=== PATIENT | male | born 1940 | race Caucasian/White ===

== ENCOUNTER 2019-08-29 13:07 | Emergency (ER) | payer OTHER ==
[2019-08-29 14:52] LABS: Absolute Lymphocytes (CBC) 1.5 K/uL (0.7-4.9); Basophils % 0.6 % (0-1.3); Lymphocytes % 19.5 % (15.3-44.8); MPV 8.3 fL (7.6-11.3); RBC Red Blood Cell Count 4.52 M/uL (4.33-5.43)
[2019-08-29 15:18] LABS: Albumin 3.2 g/dL (3.4-5.0); Bilirubin Total 0.9 mg/dL (0.2-1.0); Potassium 3.9 mmol/L (3.5-5.1); Protein, Total 7.4 g/dL (6.4-8.2); Thyroid Stimulating Hormone 1.85 uIU/mL (0.360-3.740)
--- NOTE | 2019-08-29 15:38 | RAD REPORT ---
EXAM DESCRIPTION: Ryley Gilbert (2 Views)08/29/2019 3:23 pm CLINICAL HISTORY: Cough COMPARISON: 2012 FINDINGS: The lungs appear clear of acute infiltrate. The heart is normal size Old rib fractures are present IMPRESSION: No acute abnormalities displayed
--- NOTE | 2019-08-29 16:12 | ER ---
Nurse's Notes [facility] Name: Jony Currie Age: 78 yrs Sex: Male : 1940 Arrival Date: 08/29/2019 Time: 13:11 Bed 4 Private MD: Ce Dumas H Diagnosis: Acute sinusitis Presentation: 08/29 13:30 Presenting complaint: Patient states: chest congestion x several weeks, chills, fever ss intermittent. No appetite and energy. Transition of care: patient was not received from another setting of care. Onset of symptoms is unknown. 13:30 Method Of Arrival: Ambulatory ss 13:30 Acuity: SELENE 4 ss 15:55 Risk Assessment: Do you want to hurt yourself or someone else? Patient reports no tw2 desire to harm self or others. Initial Sepsis Screen: Does the patient meet any 2 criteria? No. Patient's initial sepsis screen is negative. Does the patient have a suspected source of infection? No. Patient's initial sepsis screen is negative. Care prior to arrival: None. Triage Assessment: 13:35 Neuro: Level of Consciousness is awake, alert, obeys commands, Oriented to person, ss place, time, situation. Cardiovascular: Capillary refill < 3 seconds is brisk in bilateral fingers. Respiratory: Airway is patent Respiratory effort is even, unlabored, Respiratory pattern is regular, symmetrical. Respiratory: Reports cough that is. Derm: Skin is pink, warm \T\ dry. 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 - Social history:: Smoking status: Patient uses tobacco products, smokes two packs cigarettes per day. - Ebola Screening: : Patient negative for fever greater than or equal to 101.5 degrees Fahrenheit, and additional compatible Ebola Virus Disease symptoms. Screenin:55 Abuse screen: Denies threats or abuse. Nutritional screening: No deficits noted. tw2 Tuberculosis screening: No symptoms or risk factors identified. Fall Risk None identified. Assessment: 14:03 General: Appears in no apparent distress. Behavior is calm, cooperative, appropriate tw2 for age. Pain: Denies pain. Neuro: Level of Consciousness is awake, alert, obeys commands, Oriented to person, place, time, situation. Cardiovascular: Heart tones S1 S2 Patient's skin is warm and dry. Respiratory: Reports cough that is non-productive, persistent Airway is patent Respiratory effort is even, unlabored, Respiratory pattern is regular, symmetrical, Breath sounds are clear bilaterally. GI: No signs and/or symptoms were reported involving the gastrointestinal system. Abdomen is flat, Bowel sounds present X 4 quads. : No signs and/or symptoms were reported regarding the genitourinary system. EENT: Reports nasal congestion nasal discharge. Derm: No signs and/or symptoms reported regarding the dermatologic system. Musculoskeletal: Range of motion: intact in all extremities. 15:27 Reassessment: Patient appears in no apparent distress at this time. No changes from tw2 previously documented assessment. Patient and/or family updated on plan of care and expected duration. Pain level reassessed. Patient is alert, oriented x 3, equal unlabored respirations, skin warm/dry/pink. 15:54 Reassessment: Patient appears in no apparent distress at this time. No changes from tw2 previously documented assessment. Patient and/or family updated on plan of care and expected duration. Pain level reassessed. Patient is alert, oriented x 3, equal unlabored respirations, skin warm/dry/pink. 16:32 Reassessment: Patient appears in no apparent distress at this time. No changes from tw2 previously documented assessment. Patient and/or family updated on plan of care and expected duration. Pain level reassessed. Patient is alert, oriented x 3, equal unlabored respirations, skin warm/dry/pink. Vital Signs: 13:33 BP 108 / 91; Pulse 84; Resp 19; Temp 99.3(TE); Pulse Ox 94% on R/A; Weight 90.72 kg ss (R); Height 6 ft. 0 in. (182.88 cm) (R); Pain 2/10; 15:27 BP 91 / 54; Pulse 64; Resp 17; Pulse Ox 95% on R/A; tw2 15:53 BP 144 / 83; Pulse 65; Resp 17; Pulse Ox 97% on R/A; tw2 16:32 BP 138 / 86; Pulse 66; Resp 17; Pulse Ox 97% on R/A; tw2 13:33 Body Mass Index 27.12 (90.72 kg, 182.88 cm) ED Course: 13:11 Patient arrived in ED. as 13:12 Ce Dumas DO is Private Physician. as 13:32 Triage completed. ss 13:33 Arm band placed on right wrist. 14:03 Bed in low position. Side rails up X2. monitor worker on. Pulse ox on. NIBP on. Warm tw2 blanket given. 14:11 Ama Billy, RN is Primary Nurse. tw2 14:12 Israel Solis NP is PHCP. pm1 14:12 Mich Ernst MD is Attending Physician. pm1 15:22 Chest Pa And Lat (2 Views) XRAY In Process Unspecified. EDMS 16:32 No provider procedures requiring assistance completed. IV discontinued, intact, tw2 bleeding controlled, No redness/swelling at site. Pressure dressing applied. Administered Medications: No medications were administered Outcome: 16:10 Discharge ordered by MD. pm1 16:32 Discharged to home ambulatory, with family. tw2 16:32 Condition: stable 16:32 Discharge instructions given to patient, family, Instructed on discharge instructions, follow up and referral plans. medication usage, Demonstrated understanding of instructions, follow-up care, medications, Prescriptions given X 2. 16:33 Patient left the ED. tw2 Signatures: Dispatcher [employer] Sofie Benjamin Shelby, RN RN Israel Solis NP TRACER BULLET SECTION SUPERVISOR pm1 Ama Billy RN RN tw2
--- NOTE | 2019-08-29 16:12 | EDPHYS ---
Physician Documentation [facility] Name: Jony Currie Age: 78 yrs Sex: Male : 1940 Arrival Date: 08/29/2019 Time: 13:11 Bed 4 Private MD: Ce Dumas H ED Physician Mich Ernst HPI: 08/29 15:06 This 78 yrs old Male presents to ER via Ambulatory with complaints of Chest pm1 Congestion. 15:06 The patient or guardian reports cough, sinus congestion and pain. Onset: The pm1 symptoms/episode began/occurred 3 week(s) ago. Severity of symptoms: in the emergency department the symptoms cough and improved but sinus pain and congestion worse. Modifying factors: The symptoms are alleviated by nothing, the symptoms are aggravated by nothing. Associated signs and symptoms: Pertinent positives: earache, decreased energy. On and off fever and chills, Pertinent negatives: chest pain, diarrhea, sore throat, vomiting. The patient has not recently seen a physician. 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 - Social history:: Smoking status: Patient uses tobacco products, smokes two packs cigarettes per day. - Ebola Screening: : Patient negative for fever greater than or equal to 101.5 degrees Fahrenheit, and additional compatible Ebola Virus Disease symptoms. ROS: 15:06 Constitutional: Negative for fever, chills, and weight loss, Eyes: Negative for injury, pm1 pain, redness, and discharge. 15:06 Neck: Negative for injury, pain, and swelling, Cardiovascular: Negative for chest pain, palpitations, and edema. 15:06 Abdomen/GI: Negative for abdominal pain, nausea, vomiting, diarrhea, and constipation, Back: Negative for injury and pain, : Negative for injury, bleeding, discharge, and swelling, MS/Extremity: Negative for injury and deformity, Skin: Negative for injury, rash, and discoloration, Neuro: Negative for headache, weakness, numbness, tingling, and seizure. 15:06 ENT: Positive for ear pain, sinus congestion, sinus pain, Negative for difficulty swallowing, difficulty handling secretions, hoarseness. 15:06 Respiratory: Positive for cough, Negative for shortness of breath, sputum production, wheezing. Exam: 15:06 Constitutional: This is a well developed, well nourished patient who is awake, alert, pm1 and in no acute distress. 15:06 Eyes: Pupils equal round and reactive to light, extra-ocular motions intact. Lids and lashes normal. Conjunctiva and sclera are non-icteric and not injected. Cornea within normal limits. Periorbital areas with no swelling, redness, or edema. ENT: Nares patent. No nasal discharge, no septal abnormalities noted. Tympanic membranes are normal and external auditory canals are clear. Oropharynx with no redness, swelling, or masses, exudates, or evidence of obstruction, uvula midline. Mucous membranes moist. Neck: Trachea midline, no thyromegaly or masses palpated, and no cervical lymphadenopathy. Supple, full range of motion without nuchal rigidity, or vertebral point tenderness. No Meningismus. Chest/axilla: Normal chest wall appearance and motion. Nontender with no deformity. No lesions are appreciated. Cardiovascular: Regular rate and rhythm with a normal S1 and S2. No gallops, murmurs, or rubs. Normal PMI, no JVD. No pulse deficits. Respiratory: Lungs have equal breath sounds bilaterally, clear to auscultation and percussion. No rales, rhonchi or wheezes noted. No increased work of breathing, no retractions or nasal flaring. Abdomen/GI: Soft, non-tender, with normal bowel sounds. No distension or tympany. No guarding or rebound. No evidence of tenderness throughout. Back: No spinal tenderness. No costovertebral tenderness. Full range of motion. Skin: Warm, dry with normal turgor. Normal color with no rashes, no lesions, and no evidence of cellulitis. MS/ Extremity: Pulses equal, no cyanosis. Neurovascular intact. Full, normal range of motion. 15:06 Head/face: Sinus tenderness, is located over the right frontal sinus, left frontal sinus, right maxillary sinus and left maxillary sinus. 15:06 Neuro: Orientation: is normal, Motor: is normal, moves all fours. Vital Signs: 13:33 BP 108 / 91; Pulse 84; Resp 19; Temp 99.3(TE); Pulse Ox 94% on R/A; Weight 90.72 kg ss (R); Height 6 ft. 0 in. (182.88 cm) (R); Pain 2/10; 15:27 BP 91 / 54; Pulse 64; Resp 17; Pulse Ox 95% on R/A; tw2 15:53 BP 144 / 83; Pulse 65; Resp 17; Pulse Ox 97% on R/A; tw2 16:32 BP 138 / 86; Pulse 66; Resp 17; Pulse Ox 97% on R/A; tw2 13:33 Body Mass Index 27.12 (90.72 kg, 182.88 cm) ss MDM: 14:12 Patient medically screened. pm1 16:10 Data reviewed: vital signs. Data interpreted: Pulse oximetry: on room air is 97 %. pm1 Interpretation: normal. Counseling: I had a detailed discussion with the patient and/or guardian regarding: the historical points, exam findings, and any diagnostic results supporting the discharge/admit diagnosis, lab results, radiology results, the need for outpatient follow up, to return to the emergency department if symptoms worsen or persist or if there are any questions or concerns that arise at home. 08/29 14:20 Order name: CBC with Diff; Complete Time: 15:01 pm1 08/29 14:20 Order name: CMP; Complete Time: 15:26 pm1 08/29 14:20 Order name: TSH; Complete Time: 15:26 pm1 08/29 14:20 Order name: Flu; Complete Time: 15:26 pm1 08/29 14:20 Order name: Strep; Complete Time: 15:26 pm1 08/29 15:06 Order name: Throat Culture EDMS 08/29 14:20 Order name: Chest Pa And Lat (2 Views) XRAY; Complete Time: 16:09 pm1 08/29 14:21 Order name: IV Start; Complete Time: 14:56 tw2 Administered Medications: No medications were administered Disposition: 08/29/19 16:10 Discharged to Home. Impression: Acute sinusitis. - Condition is Stable. - Discharge Instructions: Sinusitis, Adult. - Prescriptions for Amoxicillin 500 mg Oral Capsule - take 1 capsule by ORAL route every 8 hours for 10 days; 30 tablet. - Medication Reconciliation Form, Thank You Letter, Antibiotic Education, Prescription Opioid Use form. - Follow up: Emergency Department; When: As needed; Reason: Worsening of condition. Follow up: Private Physician; When: 2 - 3 days; Reason: Recheck today's complaints, Continuance of care, Re-evaluation by your physician. - Problem is new. - Symptoms have improved. Addendum: 09/06/2019 11:06 Co-signature as Attending Physician, Mich Ernst MD I agree with the assessment and c mckeon plan of care. Signatures: Dispatcher [employer] EDMich Ingram MD MD cha Smirch, Shelby, RN RN ss Israel Solis NP LAW WRITER pm1 Ama Billy RN RN tw2 Corrections: (The following items were deleted from the chart) 08/29 16:33 16:10 08/29/2019 16:10 Discharged to Home. Impression: Acute sinusitis. Condition is tw2 Stable. Forms are Medication Reconciliation Form, Thank You Letter, Antibiotic Education, Prescription Opioid Use. Follow up: Emergency Department; When: As needed; Reason: Worsening of condition. Follow up: Private Physician; When: 2 - 3 days; Reason: Recheck today's complaints, Continuance of care, Re-evaluation by your physician. Problem is new. Symptoms have improved. pm1
[2019-08-29 17:39] VITALS: TEMP 99.3
[2019-08-29 17:41] VITALS: O2SAT 97
[2019-08-29 17:42] VITALS: BP 138/86
== END 2019-08-29 16:33 | disposition home or self-care (01) ==
LOC: ER 13:07
DX: J01.90 Acute sinusitis, unspecified (principal); F17.210 Nicotine dependence, cigarettes, uncomplicated; Z79.01 Long term (current) use of anticoagulants; Z86.718 Personal history of other venous thrombosis and embolism
CPT/HCPCS: 36415; 71046; 80053; 84443; 85025; 87070; 87081; 87804; 99284

== ENCOUNTER 2021-03-27 11:04 | Emergency (ER) | payer OTHER ==
--- NOTE | 2021-03-27 12:56 | RAD REPORT ---
EXAM DESCRIPTION: RAD - Ribs Right - 03/27/2021 12:42 pm CLINICAL HISTORY: fall, SOB COMPARISON: Chest Pa And Lat (2 Views) dated 08/29/2019 FINDINGS: There is mild cortical offset is seen involving the right lateral fourth and fifth ribs stephens spicious for rib fractures. No underlying pneumothorax is seen.
[2021-03-27] MEDS ORDERED: IPRATROPIUM BROM 0.5MG/2.5ML ONE (13:40)
[2021-03-27] MEDS ORDERED: ALBUTEROL 2.5 MG/3 ML NEB SOL ONE (13:40)
[2021-03-27] MEDS ORDERED: HYDROCODONE/APAP 5/325 MG TAB ONE (13:40)
[2021-03-27] MEDS ORDERED: predniSONE 20 MG TAB ONE (13:40)
--- NOTE | 2021-03-27 18:08 | EDPHYS ---
Physician Documentation [facility] Name: Jony Currie Age: 80 yrs Sex: Male : 1940 Arrival Date: 03/27/2021 Time: 11:08 Bed 2 Private MD: Ce Dumas H ED Physician Rishabh Serra HPI: 03/27 13:05 This 80 yrs old Male presents to ER via Wheelchair with complaints of Fall cp Injury. 13:05 Details of fall: The patient fell from an upright position, while standing. cp 13:05 Onset: The symptoms/episode began/occurred 2 day(s) ago. cp 13:05 Associated injuries: The patient sustained injury to the chest, specifically the right cp lateral anterior chest and right lateral posterior chest, pain with breathing, pain with movement, tenderness. Severity of symptoms: in the emergency department the symptoms are unchanged, despite home interventions. Patient reports fall after misstep 2 days ago in which he struck left knee and right rib area. Denies hitting head, denies LOC, denies syncope. Patient denies taking blood thinners. Historical: - Allergies: 11:25 No Known Allergies; iw - Home Meds: 11:25 ibandronate 150 mg oral tab 1 tab once moly [Active]; tamsulosin 0.4 mg oral cap 1 cap iw once daily [Active]; warfarin 7.5 mg Oral tab 1 tab once daily [Active]; - PMHx: 11:25 DVT; PE; iw - Immunization history:: Client reports receiving the 2nd dose of the Covid vaccine. - Social history:: Smoking status: Patient reports the use of cigarette tobacco products, smokes two packs cigarettes per day. - Immunization history: Last tetanus immunization: unknown. ROS: 13:10 Cardiovascular: Positive for chest pain, of the right lateral anterior chest and right cp lateral posterior chest. 13:10 Constitutional: Negative for body aches, chills, fever, poor PO intake. cp 13:10 Respiratory: Positive for shortness of breath, wheezing, Negative for cough. 13:10 Abdomen/GI: Negative for abdominal pain, constipation. cp 13:10 Eyes: Negative for injury, pain, redness, and discharge. cp 13:10 ENT: Negative for ear pain, sore throat, difficulty swallowing, difficulty handling secretions. 13:10 Back: Negative for pain at rest, pain with movement. 13:10 MS/extremity: Positive for abrasion, pain, of the left knee, Negative for decreased range of motion. 13:10 Neuro: Negative for altered mental status, headache, loss of consciousness, syncope, weakness. 13:10 All other systems are negative. Exam: 13:15 Constitutional: The patient appears in no acute distress, alert, awake, cp non-diaphoretic, non-toxic, well developed, well nourished, uncomfortable. 13:15 Head/Face: Normocephalic, atraumatic. cp 13:15 Eyes: Periorbital structures: appear normal, Pupils: equal, round, and reactive to cp light and accomodation, Extraocular movements: intact throughout, Conjunctiva: normal, no exudate, no injection, Sclera: no appreciated abnormality, Lids and lashes: appear normal, bilaterally. 13:15 ENT: External ear(s): are unremarkable, Nose: is normal, Mouth: Lips: moist, Oral mucosa: moist, Posterior pharynx: Airway: no evidence of obstruction, patent. 13:15 Neck: C-spine: vertebral tenderness, is not appreciated, crepitus, is not appreciated, ROM/movement: is normal, is supple, without pain, no range of motions limitations. 13:15 Chest/axilla: Inspection: normal, Palpation: crepitus, is not appreciated, tenderness, that is moderate, of the right lateral anterior chest and right lateral posterior chest. 13:15 Cardiovascular: Rate: normal, Rhythm: regular, Edema: is not appreciated, JVD: is not appreciated. 13:15 Respiratory: the patient does not display signs of respiratory distress, Respirations: labored breathing, that is mild, Breath sounds: decreased breath sounds, that are moderate, throughout, stridor, is not appreciated, wheezing: that is mild, is heard diffusely. 13:15 Abdomen/GI: Inspection: abdomen appears normal, Bowel sounds: active, all quadrants, Palpation: abdomen is soft and non-tender, in all quadrants, rebound tenderness, is not appreciated, involuntary guarding, is not appreciated. 13:15 Back: pain, is absent, ROM is normal, vertebral tenderness, is not appreciated. 13:15 Musculoskeletal/extremity: Extremities: grossly normal except: noted in the left knee: abrasion, tenderness, There is no evidence of decreased ROM, deformity, ROM: full passive range of motion, in the left knee. 13:15 Neuro: Orientation: to person, place \T\ time. Mentation: is normal, Motor: moves all cp fours, strength is normal, Sensation: no obvious gross deficits. Vital Signs: 11:24 BP 144 / 82; Pulse 71; Resp 16; Temp 98.2; Pulse Ox 95% on R/A; Weight 90.72 kg; Height iw 6 ft. (182.88 cm); 11:24 Body Mass Index 27.12 (90.72 kg, 182.88 cm) iw [place] Coma Score: 13:29 Eye Response: spontaneous(4). Verbal Response: oriented(5). Motor Response: obeys ph commands(6). Total: 15. Trauma Score (Adult): 13:29 Eye Response: spontaneous(1); Verbal Response: oriented(1); Motor Response: obeys ph commands(2); Systolic BP: > 89 mm Hg(4); Respiratory Rate: 10 to 29 per min(4); Audra Score: 15; Trauma Score: 12 MDM: 12:59 Patient medically screened. cp 13:00 Differential diagnosis: closed head injury, contusion, fracture, laceration, multiple cp trauma. 14:16 Data reviewed: vital signs, nurses notes, radiologic studies, plain films, Vital signs cp stable. Patient resting comfortably in exam room. Patient appears nontoxic and no signs of respiratory distress at this time. Patient reports pain improved with meds. Patient reports breathing improved with neb treatment. Will discharge to home. Recommend follow-up with primary care physician for further pain control. Will send home with an incentive spirometry.. 03/27 11:31 Order name: Ribs Right XRAY; Complete Time: 13:01 iw 03/27 13:01 Interpretation: Report reviewed. cp 03/27 13:09 Order name: INCENTIVE SPIROMETRY cp Administered Medications: 13:27 Drug: Albuterol - atroVENT (ipratropium) (3:1) (2.5 mg - 0.5 mg) 3 ml Route: Nebulizer; ph 13:27 Drug: predniSONE 60 mg Route: PO; ph 13:27 Drug: HYDROcodone-acetaminophen 5 mg-325 mg 1 tabs Route: PO; ph Disposition: 16:51 Co-signature as Attending Physician, Rishabh Serra MD. rn Disposition Summary: 03/27/21 14:18 Discharge Ordered Location: Home cp Problem: new cp Symptoms: have improved cp Condition: Stable cp Diagnosis - COPD/ Chronic obstructive pulmonary disease with (acute) exacerbation cp - Multiple fractures of ribs, right side cp Followup: cp - With: Private Physician - When: 2 - 3 days - Reason: Recheck today's complaints Discharge Instructions: - Discharge Summary Sheet cp - Rib Fracture cp - Chronic Obstructive Pulmonary Disease Exacerbation cp - How to Use an Incentive Spirometer cp Forms: - Medication Reconciliation Form cp - Thank You Letter cp - Antibiotic Education cp - Prescription Opioid Use cp Prescriptions: - Prednisone 20 mg Oral Tablet - take 2 tablets by ORAL route once daily for 5 days; 10 tablet; Refills: 0, cp Product Selection Permitted - Ultracet 37.5-325 mg Oral Tablet - take 1 tablet by ORAL route every 6 hours - for up to 5 days; do not exceed 8 cp tablets per day.; 20 tablet; Refills: 0, Product Selection Permitted Signatures: Dispatcher [employer] Norma Burnette, RN NUBIA Rishabh Serra MD MD rn Hall, Patricia, RN RN ph Trang, Mich, NATE PA cp Corrections: (The following items were deleted from the chart) 03/28 14:11 03/27 13:10 Respiratory: Negative for cough, shortness of breath, wheezing, cp cp
--- NOTE | 2021-03-27 18:08 | ER ---
Nurse's Notes [facility] Name: Jony Currie Age: 80 yrs Sex: Male : 1940 Arrival Date: 03/27/2021 Time: 11:08 Bed 2 Private MD: Ce Dumas H Diagnosis: COPD/ Chronic obstructive pulmonary disease with (acute) exacerbation;Multiple fractures of ribs, right side Presentation: 03/27 11:22 Chief complaint: Patient states: fell on Friday , was sitting douglas stool and his feet iw got tangled up and he fell and hit the brick porch with left knee and left elbow and right side of ribs, now feels like he has some chest congestion, seems to have SOB on exertion. Care prior to arrival: None. Mechanism of Injury: Fall out of chair. Trauma event details: Injury occurred in the [facility]. 11:22 Acuity: SELENE 3 iw 11:22 Method Of Arrival: Wheelchair iw 11:24 Coronavirus screen: At this time, the client does not indicate any symptoms associated iw with coronavirus-19. Ebola Screen: Patient negative for fever greater than or equal to 101.5 degrees Fahrenheit, and additional compatible Ebola Virus Disease symptoms Patient denies exposure to infectious person. Patient denies travel to an Ebola-affected area in the 21 days before illness onset. No symptoms or risks identified at this time. Initial Sepsis Screen: Does the patient meet any 2 criteria? No. Patient's initial sepsis screen is negative. Does the patient have a suspected source of infection? No. Patient's initial sepsis screen is negative. Risk Assessment: Do you want to hurt yourself or someone else? Patient reports no desire to harm self or others. Onset of symptoms was March 25, 2021. 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 - Social history:: Smoking status: Patient reports the use of cigarette tobacco products, smokes two packs cigarettes per day. - Immunization history: Last tetanus immunization: unknown. Screenin:29 Abuse screen: Denies threats or abuse. Denies injuries from another. Nutritional ph screening: No deficits noted. Tuberculosis screening: No symptoms or risk factors identified. Fall Risk None identified. Primary Survey: 13:28 NO uncontrolled hemorrhage observed. A: The patient is alert. Airway: patent, No ph supplemental oxygen in use on arrival. Oral cavity: clear. Breathing/Chest: Respiratory pattern: regular, Respiratory effort: spontaneous, unlabored, Chest inspection: symmetrical rise and fall of the chest. Circulation: Skin color: pink, Skin temperature: warm, dry. Disability Alert. Exposure/Environment: There is no evidence of uncontrolled external bleeding. Assessment: 13:27 General: Appears in no apparent distress. comfortable, slender, well groomed, Behavior ph is calm, cooperative, appropriate for age. Pain: Complains of pain in right lateral anterior chest. Neuro: Level of Consciousness is awake, alert, obeys commands, Oriented to person, place, time, situation. Cardiovascular: Capillary refill < 3 seconds in bilateral fingers Patient's skin is warm and dry. Respiratory: Reports shortness of breath at rest pain with cough pain with respiration Airway is patent Respiratory effort is. GI: No signs and/or symptoms were reported involving the gastrointestinal system. Derm: Skin is healthy with good turgor, Skin is pink, warm \T\ dry. Musculoskeletal: Circulation, motion, and sensation intact. Range of motion: limited in all extremities. 14:46 Reassessment: Patient appears in no apparent distress at this time. Patient and/or ss family updated on plan of care and expected duration. Pain level reassessed. 14:47 Reassessment: Educated patient on IS. IS given. ss Vital Signs: 11:24 BP 144 / 82; Pulse 71; Resp 16; Temp 98.2; Pulse Ox 95% on R/A; Weight 90.72 kg; Height iw 6 ft. (182.88 cm); 11:24 Body Mass Index 27.12 (90.72 kg, 182.88 cm) iw Audra Coma Score: 13:29 Eye Response: spontaneous(4). Verbal Response: oriented(5). Motor Response: obeys ph commands(6). Total: 15. Trauma Score (Adult): 13:29 Eye Response: spontaneous(1); Verbal Response: oriented(1); Motor Response: obeys ph commands(2); Systolic BP: > 89 mm Hg(4); Respiratory Rate: 10 to 29 per min(4); Amity Score: 15; Trauma Score: 12 ED Course: 11:08 Patient arrived in ED. mr 11:09 Ce Dumas DO is Private Physician. mr 11:24 Triage completed. iw 11:26 Arm band placed on. iw 12:42 Ribs Right XRAY In Process Unspecified. EDMS 12:58 Mich Costello PA is PHCP. cp 12:58 Rishabh Serra MD is Attending Physician. cp 13:11 Grazyna Fu, NUBIA is Primary Nurse. ph 13:29 Patient has correct armband on for positive identification. Bed in low position. Call ph light in reach. Side rails up X 1. Pulse ox on. NIBP on. Door closed. Noise minimized. 13:30 Patient maintains SpO2 saturation greater than 95% on room air. Thermoregulation: warm ph blanket given to patient. 14:46 No provider procedures requiring assistance completed. Patient did not have IV access ss during this emergency room visit. Administered Medications: 13:27 Drug: Albuterol - atroVENT (ipratropium) (3:1) (2.5 mg - 0.5 mg) 3 ml Route: Nebulizer; ph 13:27 Drug: predniSONE 60 mg Route: PO; ph 13:27 Drug: HYDROcodone-acetaminophen 5 mg-325 mg 1 tabs Route: PO; ph Outcome: 14:18 Discharge ordered by . cp 14:47 Discharged to home ambulatory. ss 14:47 Condition: good 14:47 Discharge instructions given to patient, Instructed on discharge instructions, follow up and referral plans. Demonstrated understanding of instructions, follow-up care, Prescriptions given X 2. 14:47 Patient left the ED. ss Signatures: Dispatcher [employer] EDMS Alvarez, Sindy mr Monty, Norma, RN RN Grace Sevilla RN RN ss Grazyna Fu RN RN Trang, Mich, NATE SULLIVAN cp
[2021-03-28 22:26] VITALS: BP 144/82; TEMP 98.2; O2SAT 95
== END 2021-03-27 14:47 | disposition home or self-care (01) ==
LOC: ER 11:04
DX: S22.41XA Multiple fractures of ribs, right side, initial encounter for closed fracture (principal); J44.1 Chronic obstructive pulmonary disease with (acute) exacerbation; W19.XXXA Unspecified fall, initial encounter; Z86.718 Personal history of other venous thrombosis and embolism; Z86.711 Personal history of pulmonary embolism; F17.210 Nicotine dependence, cigarettes, uncomplicated
CPT/HCPCS: J7512

== ENCOUNTER 2021-09-03 10:05 | Emergency (ER) | payer OTHER ==
--- NOTE | 2021-09-03 11:59 | RAD REPORT ---
EXAM DESCRIPTION: RAD - Ankle Right 3 View - 09/03/2021 11:46 am CLINICAL HISTORY: Pain;Swelling COMPARISON: Foot Left 3 View dated 06/01/2015 FINDINGS: No acute fracture. No malalignment. Osteochondral defect in the medial talar dome. Degener ative changes are present at the medial malleolus. Calcaneal spurring. IMPRESSION: No acute right ankle fractures identified. Osteochondral defect in the medial talar dome . This can be better assessed with MRI if clinically indicated.
--- NOTE | 2021-09-03 12:09 | EDPHYS ---
Physician Documentation [facility] Name: Jony Currie Age: 80 yrs Sex: Male : 1940 Arrival Date: 09/03/2021 Time: 10:09 Bed DIS4 Private MD: Ce Dumas H ED Physician Mich Ernst HPI: 09/03 10:55 This 80 yrs old Male presents to ER via Ambulatory with complaints of right ankle pain. pm1 10:55 The patient presents with pain. The complaints affect the right ankle. Onset: The pm1 symptoms/episode began/occurred On and off for the past 1 year, worse the past 3 days. Context: The problem was sustained at an unknown location, resulted from an unknown cause, The patient can fully bear weight on the affected extremity. the patient is able to ambulate. Associated signs and symptoms: Pertinent negatives: calf tenderness, fever, numbness, tingling. Modifying factors: The symptoms are alleviated by pain medication given for rib fracture a few months ago the symptoms are aggravated by weight bearing, movement. Severity of symptoms: in the emergency department the symptoms have improved. The patient has experienced similar episodes in the past, multiple times. The patient has not recently seen a physician. Historical: - Allergies: 10:54 No Known Allergies; iw - PMHx: 10:54 DVT; PE; iw ROS: 10:55 Constitutional: Negative for fever, chills, and weight loss, Cardiovascular: Negative pm1 for chest pain, palpitations, and edema, Respiratory: Negative for shortness of breath, cough, wheezing, and pleuritic chest pain. 10:55 Skin: Negative for injury, rash, and discoloration, Neuro: Negative for headache, weakness, numbness, tingling, and seizure. 10:55 MS/extremity: Positive for pain, swelling, tenderness, of the right ankle, Negative for decreased range of motion, deformity. 10:55 All other systems are negative. Exam: 10:55 Constitutional: This is a well developed, well nourished patient who is awake, alert, pm1 and in no acute distress. Head/Face: Normocephalic, atraumatic. 10:55 Skin: Warm, dry with normal turgor. Normal color with no rashes, no lesions, and no evidence of cellulitis. 10:55 Cardiovascular: Exam negative for acute changes, Rate: normal, Rhythm: regular, Pulses: no pulse deficits are appreciated, Edema: is not appreciated. 10:55 Respiratory: Exam negative for acute changes, respiratory distress, shortness of breath. 10:55 Musculoskeletal/extremity: Extremities: grossly normal except: noted in the right ankle: swelling, tenderness, There is no evidence of decreased ROM, deformity, ROM: full active range of motion, in the right foot and right ankle, full passive range of motion, Circulation is intact in all extremities. the right foot Sensation intact. Calves: are non-tender, not swelling. 10:55 Neuro: Exam negative for acute changes, Orientation: is normal, Mentation: is normal, Motor: is normal, moves all fours, Gait: is steady, at a normal pace, without difficulty. Vital Signs: 10:54 BP 141 / 73; Pulse 98; Resp 16; Temp 97.0; Pulse Ox 100% on R/A; Pain 4/10; iw MDM: 10:55 Patient medically screened. pm1 11:00 Data reviewed: vital signs. Data interpreted: Pulse oximetry: on room air is 100 %. pm1 Interpretation: normal. 11:01 ED course: Patient refused pain medication offered because he took some at home this pm1 morning. 12:05 Counseling: I had a detailed discussion with the patient and/or guardian regarding: the pm1 historical points, exam findings, and any diagnostic results supporting the discharge/admit diagnosis, radiology results, the need for outpatient follow up, for definitive care, a orthopedic surgeon, to return to the emergency department if symptoms worsen or persist or if there are any questions or concerns that arise at home. 09/03 10:55 Order name: Uric Acid pm1 09/03 10:55 Order name: Uric Acid; Complete Time: 11:37 EDMS 09/03 10:55 Order name: Ankle Right 3 View XRAY; Complete Time: 12:04 pm1 Administered Medications: No medications were administered Disposition: 09/04 08:42 Co-signature as Attending Physician, Mich Ernst MD I agree with the assessment and ekaterina plan of care. Disposition Summary: 09/03/21 12:08 Discharge Ordered Location: Home pm1 Problem: new pm1 Symptoms: have improved pm1 Condition: Stable pm1 Diagnosis - Right ankle pain and swelling - oestochondral defect pm1 Followup: pm1 - With: Emergency Department - When: As needed - Reason: Worsening of condition Followup: pm1 - With: Private Physician - When: 2 - 3 days - Reason: Recheck today's complaints, Continuance of care, Re-evaluation by your physician Discharge Instructions: - Discharge Summary Sheet pm1 - Ankle Pain pm1 Forms: - Medication Reconciliation Form pm1 - Thank You Letter pm1 - Antibiotic Education pm1 - Prescription Opioid Use pm1 Signatures: Dispatcher [employer] EDMich Ingram MD MD cha Williams, Irene, RN RN Israel Geiger, [employer] pm1
--- NOTE | 2021-09-03 12:09 | ER ---
Nurse's Notes [facility] Name: Jony Currie Age: 80 yrs Sex: Male : 1940 Arrival Date: 09/03/2021 Time: 10:09 Bed DIS4 Private MD: Ce Dumas H Diagnosis: Right ankle pain and swelling - oestochondral defect Presentation: 09/03 10:53 Chief complaint:. Coronavirus screen: At this time, the client does not indicate any iw symptoms associated with coronavirus-19. Ebola Screen: Patient negative for fever greater than or equal to 101.5 degrees Fahrenheit, and additional compatible Ebola Virus Disease symptoms Patient denies exposure to infectious person. Patient denies travel to an Ebola-affected area in the 21 days before illness onset. No symptoms or risks identified at this time. 10:53 Acuity: SELENE 4 iw 10:53 Chief complaint: Patient states: RIGHT ANKLE SWELLING FOR PAST YEARS, WORSE PAST THREE iw DAYS. Initial Sepsis Screen: Does the patient meet any 2 criteria? No. Patient's initial sepsis screen is negative. Does the patient have a suspected source of infection? No. Patient's initial sepsis screen is negative. Risk Assessment: Do you want to hurt yourself or someone else? Patient reports no desire to harm self or others. Onset of symptoms was 2020. 10:53 Method Of Arrival: Ambulatory iw Historical: - Allergies: 10:54 No Known Allergies; iw - PMHx: 10:54 DVT; PE; iw Screenin:11 Abuse screen: Denies threats or abuse. Denies injuries from another. Nutritional iw screening: No deficits noted. Tuberculosis screening: No symptoms or risk factors identified. Fall Risk None identified. Assessment: 11:11 General: Appears in no apparent distress. Behavior is calm, cooperative. Pain: iw Complains of pain in right ankle and anterior aspect of right ankle. Vital Signs: 10:54 BP 141 / 73; Pulse 98; Resp 16; Temp 97.0; Pulse Ox 100% on R/A; Pain 4/10; iw ED Course: 10:09 Patient arrived in ED. am2 10:09 Ce Dumas DO is Private Physician. am2 10:53 Triage completed. iw 10:54 Israel Solis NP is PHCP. pm1 10:54 Mich Ernst MD is Attending Physician. pm1 10:55 Arm band placed on. iw 11:04 Uric Acid Sent. iw 11:04 Uric Acid Sent. iw 11:11 Norma Millan RN is Primary Nurse. iw 11:46 Ankle Right 3 View XRAY In Process Unspecified. EDMS Administered Medications: No medications were administered Outcome: 12:08 Discharge ordered by . pm1 12:22 Patient left the ED. iw Signatures: Dispatcher [employer] EDMS Norma Millan RN RN iw Israel Solis NP [employer] pm1 Jada Kuo am2 Corrections: (The following items were deleted from the chart) 10:56 10:54 Pulse 98bpm; Resp 16bpm; Pulse Ox 100% RA; Temp 97.0F; Pain 4/10; iw iw 11:12 11:11 BP 107 / 82; iw iw
[2021-09-03 12:27] VITALS: BP 141/73; TEMP 97; O2SAT 100
== END 2021-09-03 12:22 | disposition home or self-care (01) ==
LOC: ER 10:05
DX: M21.961 Unspecified acquired deformity of right lower leg (principal)
CPT/HCPCS: 36415; 84550; 99283

== ENCOUNTER 2022-03-11 18:28 | Emergency (ER) | payer OTHER ==
[2012-05-14 12:01] VITALS: BP 137/99
--- NOTE | 2022-03-11 20:34 | ER ---
Nurse's Notes [facility] Name: Jony Currie Age: 81 yrs Sex: Male : 1940 Arrival Date: 03/11/2022 Time: 18:30 Bed Waiting Private MD: Ce Dumas H Diagnosis: ED Course: 03/11 18:30 Patient arrived in ED. mr 18:31 Ce Dumas DO is Private Physician. mr 20:33 Ce Dumas DO is Attending Physician. kd3 Administered Medications: No medications were administered Outcome: 20:33 Patient left the ED. kd3 Signatures: Sindy Alvarez Kyli, RN RN kd3
== END 2022-03-11 20:33 | disposition left against medical advice (07) ==
LOC: ER 18:28
DX: Z02.9 Encounter for administrative examinations, unspecified (principal)

== ENCOUNTER 2024-12-05 14:20 | Inpatient (IN) | payer OTHER ==
--- OUTSIDE RECORDS SUMMARY | 2024-12-05 14:23 | XMS REPORT | Continuity of Care Document ---
Author Name Unknown Address [address] [place] [address] [address] [place] [address] Organization [facility] [place] Address [address] [facility] [address] [place] [address] Care Team Providers Care Mail List Librarian Name Role Phone Unavailable Unavailable Unavailable Problems Condition Name Condition Details Condition Category Status Onset Date Resolution Date Last Treatment Date Treating Clinician Comments Source Pain in lumbar spine Pain in Lumbar Spine Problem Active 09-08 00:00: 00 [facility] Social History Smoking Status Start Date Stop Date Source Former Smoker [facility] Medications Ordered Medication Name Filled Medication Name Start Date Stop Date Current Medication? Ordering Clinician Indication Dosage Frequency Signature (SIG) Comments Components Source amoxicillin 875 mg-potassiu m clavulanate 125 mg tablet TAKE 1 TABLET BY MOUTH TWICE A DAY FOR 10 DAYS amoxicillin 875 mg-potassiu m clavulanate 125 mg tablet TAKE 1 TABLET BY MOUTH TWICE A DAY FOR 10 DAYS No amoxicilli n 875 mg-potassi um clavulanat e 125 mg tablet TAKE 1 TABLET BY MOUTH TWICE A DAY FOR 10 DAYS [facility] azithromyci n 500 mg tablet TAKE 1 TABLET BY MOUTH ONCE A DAY X 5 DAYS azithromyci n 500 mg tablet TAKE 1 TABLET BY MOUTH ONCE A DAY X 5 DAYS No azithromyc in 500 mg tablet TAKE 1 TABLET BY MOUTH ONCE A DAY X 5 DAYS [facility] ibandronate 150 mg tablet TAKE 1 ORAL TABLET ONCE A MONTH ibandronate 150 mg tablet TAKE 1 ORAL TABLET ONCE A MONTH No ibandronat e 150 mg tablet TAKE 1 ORAL TABLET ONCE A MONTH [facility] metoprolol succinate ER 25 mg tablet,exte nded release 24 hr TAKE 1 TABLET BY MOUTH EVERY DAY metoprolol succinate ER 25 mg tablet,exte nded release 24 hr TAKE 1 TABLET BY MOUTH EVERY DAY No metoprolol succinate ER 25 mg tablet,ext ended release 24 hr TAKE 1 TABLET BY MOUTH EVERY DAY [facility] oseltamivir 75 mg capsule TAKE 1 CAPSULE BY MOUTH TWICE A DAY FOR 5 DAYS oseltamivir 75 mg capsule TAKE 1 CAPSULE BY MOUTH TWICE A DAY FOR 5 DAYS No oseltamivi r 75 mg capsule TAKE 1 CAPSULE BY MOUTH TWICE A DAY FOR 5 DAYS [facility] Paxlovid 150 mg-100 mg tablets in a dose pack (Renal Dose) TAKE 1 DOSE PACK BY MOUTH TWICE A DAY X 5 DAYS Paxlovid 150 mg-100 mg tablets in a dose pack (Renal Dose) TAKE 1 DOSE PACK BY MOUTH TWICE A DAY X 5 DAYS No Paxlovid 150 mg-100 mg tablets in a dose pack (Renal Dose) TAKE 1 DOSE PACK BY MOUTH TWICE A DAY X 5 DAYS [facility] promethazin e-DM 6.25 mg-15 mg/5 mL oral syrup TAKE 5ML BY MOUTH EVERY 6 HOURS NEEDED FOR COUGH promethazin e-DM 6.25 mg-15 mg/5 mL oral syrup TAKE 5ML BY MOUTH EVERY 6 HOURS NEEDED FOR COUGH No promethazi ne-DM 6.25 mg-15 mg/5 mL oral syrup TAKE 5ML BY MOUTH EVERY 6 HOURS NEEDED FOR COUGH [facility] tamsulosin 0.4 mg capsule TAKE 1 CAPSULE BY MOUTH EVERYDAY AT BEDTIME tamsulosin 0.4 mg capsule TAKE 1 CAPSULE BY MOUTH EVERYDAY AT BEDTIME No tamsulosin 0.4 mg capsule TAKE 1 CAPSULE BY MOUTH EVERYDAY AT BEDTIME [facility] warfarin 7.5 mg tablet TAKE 1 TABLET BY MOUTH EVERY DAY warfarin 7.5 mg tablet TAKE 1 TABLET BY MOUTH EVERY DAY No warfarin 7.5 mg tablet TAKE 1 TABLET BY MOUTH EVERY DAY [facility] Vital Signs Vital Name Observation Time Observation Value Comments S ource Height 2024-09-15 00:00:00 72 [in_i] [facility] Body Weight 2024-09-15 00:00:00 210 [lb_av] [facility] BMI (Body Mass Index) 2024-09-15 00:00:00 28.5 kg/m2 [facility] BMI (Body Mass Index) 2024-09-08 00:00:00 28.5 kg/m2 [facility] Body Weight 2024-09-08 00:00:00 210 [lb_av] Nickie [facility] Height 2024-09-08 00:00:00 72 [in_i] [facility] Procedures Procedure Date / Time Performed Performing Clinicia n Source MRI, lumbar spine, w/o contrast 2024-09-08 00:00:00 [facility] Back Surgery [facility] Eye Surgery [facility] Foot Surgery [facility] Knee Surgery [facility] Encounters Start Date/Time End Date/Time Encounter Type Admission Type Attending [facility] Care Facility Care Department Encounter ID Source 2021-10-01 07:04:01 Outpatient [facility] [id number] [facility] 2021-09-26 14:30:32 Outpatient [facility] [id number] [facility] 2024-09-15 00:00:00 2024-09-15 00:00:00 Raúl Girard MD: [id number] [place] [address] , Ph. [phone] [facility] [place] [id number] [facility] 2024-09-08 00:00:00 2024-09-08 00:00:00 Raúl Girard MD: [id number] [place] [address] , Ph. [phone] [facility] [place] [facility] [place] [id number] [facility]
[2024-12-05] MEDS ORDERED: NA CHLORIDE 0.9% 1,000 ML ONE (15:06)
[2024-12-05 15:29] LABS: Absolute Basophils 0.1 K/uL (0-0.5); Absolute Lymphocytes (CBC) 1.2 K/uL (0.7-4.9); Absolute Monocytes 0.7 K/uL (0.1-1.3); Absolute Neutrophil 6.5 K/uL (1.8-8.0); Basophils % 1.5 % (0-1.3); Eosinophils % 0.4 % (0-4.4); Hematocrit 42.4 % (39.6-49.0); Hemoglobin 14.4 g/dL (13.6-17.9); Lymphocytes % 13.8 % (15.3-44.8); MCH 31.4 pg (27.0-35.0); MCV 92.4 fL (80-100); MPV 8.5 fL (7.6-11.3); Neutrophils % 76.3 % (41.7-73.7); Nucleated Red Blood Cells % 0.1 % (0-0); Platelets 187 thou/uL (152-406); RBC Red Blood Cell Count 4.59 M/uL (4.33-5.43); Red Cell Distribution Width 13.7 % (12.1-15.2)
[2024-12-05 15:36] LABS: Influenza A Ag Negative; Influenza B Ag Negative; SARS-CoV-2 Antigen Rapid Res Negative (Negative)
[2024-12-05 15:39] LABS: PT Prothrombin Time 18.8 SECONDS (10-13.0); PTT, Activated Partial Thromb 33.6 SECONDS (27.2-37.4); Protime INR 1.69
[2024-12-05 15:44] LABS: Albumin 3.7 g/dL (3.4-5.0); Albumin/Globulin Ratio 0.8 (1.1-1.8); Anion Gap 11.8 mEq/L (5.0-15.0); Bilirubin Total 1.2 mg/dL (0.2-1.0); Globulin 4.4 g/dL (2.3-3.5); Potassium 3.8 mEq/L (3.5-5.1); Protein, Total 8.1 g/dL (6.4-8.2)
--- NOTE | 2024-12-05 16:01 | RAD REPORT ---
EXAMINATION: ONE VIEW CHEST XR CLINICAL INDICATION: Male, 84 years old.,DYSPNEA TECHNIQUE: Frontal chest projection is submitted. Examination is limited by patient positioning and t echnique. COMPARISON: 08/29/[address] chest 05/21/2024 FINDINGS: The lungs show progressive interstitial thickening although suboptimal inspiratory effort somewhat li mits evaluation. Crescentic left midlung opacity is somewhat progressive since prior CT with ill-defined margins. No pneumothorax or sizable effusion. The heart is normal in size. Mediastinal co ntours are unremarkable. Advanced degenerative changes of the right shoulder. IMPRESSION: New crescentic left mid lung opacity, could relate to atelectasis given finding on prior CT, although superimposed airspace disease cannot be excluded given the progressive appearance and ill-defined margins. Diffuse interstitial prominence could relate to interstitial lung disease, however decreased inspirat ory effort could contribute to this appearance.
[2024-12-05 16:20] LABS: Specific Gravity 1.028 (1.005-1.030); Sqamous Epithelial <5 /HPF (None Seen); Transitional Epithelial <5 /HPF (None Seen); Urine Bacteria <20 /HPF (<20); Urine Bilirubin NEGATIVE (Negative); Urine Blood 3+ (Negative); Urine Clarity Turbid (Clear); Urine Color Yellow (Yellow); Urine Culture Reflex Order NOT NEEDED; Urine Glucose NEGATIVE (Negative); Urine Ketones 1+ (Negative); Urine Microscopic Reflex YN ORDER UMIC; Urine Mucus Slight /HPF (None Seen); Urine Nitrite NEGATIVE (Negative); Urine Protein 2+ (Negative); Urine RBC 21-50 /HPF (None Seen); Urine Urobilinogen 1+ (Normal); Urine WBC <5 /HPF (<5); Urine Yeast (Budding) Occasional /HPF (None Seen)
[2024-12-05] MEDS ORDERED: CEFTRIAXONE 1000 MG/VIAL ONE (16:27)
[2024-12-05] MEDS ORDERED: AZITHROMYCIN 500 MG INJ IVPB ONE (16:27)
--- NOTE | 2024-12-05 16:27 | EDPHYS ---
Physician Documentation [facility] Name: Jony Currie Age: 84 yrs Sex: Male : 1940 Arrival Date: 12/05/2024 Time: 14:20 Bed 20 Private MD: ED Physician Bre Babcock HPI: 12/05 14:58 This 84 yrs old Male presents to ER via Wheelchair with complaints of Fever, Weakness. sb4 15:02 Patient states that he spiked a fever 2 days ago and ever since he has been sb4 experiencing intermittent hot flashes and chills as well as feeling very weak. States that he gets short of breath walking short distances. Denies any cough, congestion, chest pain, abdominal pain, nausea, vomiting, diarrhea. 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 - Infectious Disease History:: Denies. - Social history:: Smoking status: Patient/guardian denies using tobacco, the patient reports quitting approximately 2 years ago. ROS: 15:02 Abdomen/GI: Negative for abdominal pain, nausea, vomiting, diarrhea, and constipation, sb4 15:02 Constitutional: Positive for chills, fatigue, fever, 15:02 Respiratory: Positive for dyspnea on exertion, 15:02 Neuro: Positive for weakness, 15:02 All other systems are negative, Exam: 15:02 Head/Face: Normocephalic, atraumatic. Eyes: Extra-ocular motions intact. Periorbital sb4 areas with no swelling, redness, or edema. ENT: Mucous membranes moist. Cardiovascular: Regular rate and rhythm with a normal S1 and S2. Respiratory: No increased work of breathing, no retractions or nasal flaring. Abdomen/GI: Soft, non-tender, no distension. Skin: Warm, dry with normal turgor. Normal color with no rashes, no lesions, and no evidence of cellulitis. 15:02 Constitutional: The patient appears alert, awake, obviously ill, Vital Signs: 14:36 BP 134 / 69; Pulse 102; Resp 19; Temp 98.6; Pulse Ox 94% on R/A; Weight 95.25 kg; iw Height 6 ft. 0 in. ; 16:39 BP 115 / 69; Pulse 88; Resp 18 S; Temp 99.1(O); Pulse Ox 95% on R/A; kc6 14:36 Body Mass Index 28.48 (95.25 kg, 182.88 cm) iw MDM: 14:30 Medical Screening Exam initiated sb4 16:30 Data reviewed: vital signs, nurses notes, lab test result(s), EKG, radiologic studies, sb4 I have discussed the patient's presentation/case with the attending Emergency Department Physician; and as a result, I will admit patient. Counseling: I had a detailed discussion with the patient and/or guardian regarding the historical points, exam findings, and any diagnostic results supporting the discharge/admit diagnosis, lab results, radiology results, the need for further work-up and treatment in the hospital. 12/05 14:50 Order name: Blood Culture Adult (2) sb4 12/05 14:50 Order name: CBC with Diff; Complete Time: 15:39 sb4 12/05 14:50 Order name: CMP; Complete Time: 15:44 sb4 12/05 14:50 Order name: Lactate w/ 2H reflex if indic.; Complete Time: 15:46 sb4 12/05 14:50 Order name: Protime (+inr); Complete Time: 15:39 sb4 12/05 14:50 Order name: Ptt, Activated; Complete Time: 15:39 sb4 12/05 14:50 Order name: Urinalysis w/ reflexes; Complete Time: 16:23 sb4 12/05 14:50 Order name: COVID-19 Ag + Flu A+B Ag; Complete Time: 15:39 sb4 12/05 17:00 Order name: CBC with Automated Diff EDMS 12/05 17:00 Order name: CBC with Automated Diff EDMS 12/05 17:00 Order name: Comprehensive Metabolic Panel EDMS 12/05 17:00 Order name: Comprehensive Metabolic Panel EDMS 12/05 17:00 Order name: Protime (+INR) EDMS 12/05 17:00 Order name: Protime (+INR) EDMS 12/05 14:50 Order name: Chest Single View XRAY; Complete Time: 16:01 sb4 12/05 17:19 Order name: Thorax Wo Con EDMS 12/05 14:50 Order name: Accucheck; Complete Time: 15:22 sb4 12/05 14:50 Order name: EKG - Nurse/Tech; Complete Time: 15:22 sb4 12/05 14:50 Order name: IV Saline Lock - Large Bore; Complete Time: 15:22 sb4 12/05 14:50 Order name: Labs collected and sent; Complete Time: 15:22 sb4 12/05 14:50 Order name: O2 Per Protocol; Complete Time: 15:05 sb4 12/05 14:50 Order name: O2 Sat Monitoring; Complete Time: 15: sb4 12/05 14:50 Order name: Vital Signs; Complete Time: 15: sb4 EC:25 Rate is 97 beats/min. Rhythm is irregularly irregular, A fib. QRS interval is normal at sb4 92 msec. QT interval is normal at 336 msec. No Q waves. T waves are Normal. No ST changes noted. Clinical impression: Atrial Fibrillation. Changes noted from previous ECG on January 07, 2023. Interpreted by me. Reviewed by me. Administered Medications: 15:22 Drug: NS 0.9% IV 1000 ml IV at 1000 ml once; to be given as a bolus over 60 minutes kc6 Route: IV; Rate: 1000 ml; Site: left antecubital; 18:14 Follow up: Response: No adverse reaction; IV Status: Completed infusion; IV Intake: kc6 1000ml 16:39 Drug: AZITHromycin IVPB 500 mg IVPB once over 1 hrs; (mix in 250 mL NS) Route: IVPB; kc6 Infused Over: 1 hrs; Site: left antecubital; 18:14 Follow up: Response: No adverse reaction; IV Status: Completed infusion; IV Intake: kc6 1000ml 16:39 Drug: Rocephin IV 1 grams IV at calculated rate once; Given slow IV push per pharmacy kc6 instructions Route: IV; Rate: calculated rate; Site: left antecubital; 18:14 Follow up: Response: No adverse reaction; IV Status: Completed infusion; IV Intake: [id number] Disposition Summary: 12/05/24 16:26 Hospitalization Ordered Notes: Hospitalization Status: Inpatient Admission sb4 Provider: Durga Jones4 [facility] sb4 Condition: Fair sb4 Problem: new sb4 Symptoms: are unchanged sb4 Bed/Room Type: Standard sb4 Room Assignment: 204(12/05/24 17:37) iw Diagnosis - Other pneumonia, unspecified organism sb4 - Atrial fibrillation on warfarin with subtherapeutic INR sb4 - Weakness sb4 Forms: - Medication Reconciliation Form sb4 - SBAR form sb4 - Leadership Thank You Letter sb4 Signatures: Dispatcher [employer] EDNorma Abrams RN RN iw Dorothea Tan RN RN kc6 Neeta Mitchell PA-C PA-C sb4 Corrections: (The following items were deleted from the chart) 14:51 14:51 BLOOD CULTURE*+BA.LAB.BRZ ordered. EDMS EDMS 14:51 14:51 CBC+H.LAB.BRZ ordered. EDMS EDMS 14:51 14:51 COMPREHENSIVE METABOLIC PANEL+C.LAB.BRZ ordered. EDMS EDMS 14:51 14:51 LACTATE+C.LAB.BRZ ordered. EDMS EDMS 14:51 14:51 PROTIME (+INR)+COAG.LAB.BRZ ordered. EDMS EDMS 14:51 14:51 PTT, ACTIVATED+COAG.LAB.BRZ ordered. EDMS EDMS 14:51 14:51 Urinalysis+U.LAB.BRZ ordered. EDMS EDMS 14:51 14:51 COVID-19 Ag + Flu A+B Ag+I.LAB.BRZ ordered. EDMS EDMS 14:51 14:51 Chest Single View+RAD.RAD.BRZ ordered. EDMS EDMS 15:31 15:25 Rate is 97 beats/min. Rhythm is irregularly irregular, A fib. QRS interval is sb4 normal at 92 msec. QT interval is normal at 336 msec. No Q waves. T waves are Normal. No ST changes noted. Clinical impression: Atrial Fibrillation. Interpreted by me. Reviewed by me. sb4 17:19 17:06 CT-CHEST WITHOUT CONTRAST ordered. EDMS EDMS 17:37 16:26 sb4 iw
--- NOTE | 2024-12-05 16:27 | ER ---
Nurse's Notes [facility] Name: Jony Currie Age: 84 yrs Sex: Male : 1940 Arrival Date: 12/05/2024 Time: 14:20 Bed 20 Private MD: Diagnosis: Other pneumonia, unspecified organism;Atrial fibrillation on warfarin with subtherapeutic INR;Weakness Presentation: 12/05 14:35 Chief complaint: Spouse and/or significant other states: Friday he worked all day iw outside, he had a fever of 102 that night , his fever has broken but he is still very weak, also has chills and sweats. 14:36 Coronavirus screen: Client presents with at least one sign or symptom that may indicate iw coronavirus-19. Ebola Screen: No symptoms or risks identified at this time. Initial Sepsis Screen: Does the patient meet any 2 criteria? No. Patient's initial sepsis screen is negative. Does the patient have a suspected source of infection? No. Patient's initial sepsis screen is negative. Risk Assessment: Do you want to hurt yourself or someone else? Patient reports no desire to harm self or others. Onset of symptoms was December 03, 2024. 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 - Infectious Disease History:: Denies. - Social history:: Smoking status: Patient/guardian denies using tobacco, the patient reports quitting approximately 2 years ago. Screenin:24 [facility] ED Fall Risk Assessment (Adult) History of falling in the last 3 months, kc6 including since admission No falls in past 3 months (0 pts) Confusion or Disorientation No (0 pts) Intoxicated or Sedated No (0 pts) Impaired Gait No (0 pts) Mobility Assist Device Used No (0 pt) Altered Elimination No (0 pt) Score/Fall Risk Level 0 - 2 = Low Risk Oriented to surroundings, Maintained a safe environment, Educated pt \T\ family on fall prevention, incl call for assistance when getting out of bed. Abuse screen: Denies threats or abuse. Denies injuries from another. Nutritional screening: No deficits noted. Tuberculosis screening: No symptoms or risk factors identified. Assessment: 15:25 General: Appears in no apparent distress. comfortable, well groomed, well developed, kc6 Behavior is calm, cooperative, appropriate for age, Reports chills for 2-3 days, fever for 2-3 days, feeling ill for 2-3 days, fatigue for 2-3 days. Pain: Denies pain. Neuro: Level of Consciousness is awake, alert, obeys commands, Oriented to person, place, time, situation, Appropriate for age Reports weakness. Cardiovascular: Capillary refill < 3 seconds. Respiratory: Airway is patent Trachea midline Respiratory effort is even, unlabored, Respiratory pattern is regular, symmetrical. GI: No signs and/or symptoms were reported involving the gastrointestinal system. : No signs and/or symptoms were reported regarding the genitourinary system. EENT: No signs and/or symptoms were reported regarding the EENT system. Derm: No signs and/or symptoms reported regarding the dermatologic system. Skin is intact, is healthy with good turgor, Skin is pink, warm \T\ dry. Musculoskeletal: No signs and/or symptoms reported regarding the musculoskeletal system. Circulation, motion, and sensation intact. Range of motion: intact in all extremities. 16:39 Reassessment: Patient appears in no apparent distress at this time. No changes from kc6 previously documented assessment. Patient and/or family updated on plan of care and expected duration. Pain level reassessed. Patient is alert, oriented x 3, equal unlabored respirations, skin warm/dry/pink. Vital Signs: 14:36 BP 134 / 69; Pulse 102; Resp 19; Temp 98.6; Pulse Ox 94% on R/A; Weight 95.25 kg; iw Height 6 ft. 0 in. ; 16:39 BP 115 / 69; Pulse 88; Resp 18 S; Temp 99.1(O); Pulse Ox 95% on R/A; kc6 14:36 Body Mass Index 28.48 (95.25 kg, 182.88 cm) iw ED Course: 14:23 Patient arrived in ED. mr 14:29 [facility] sb4 14:29 Bre Babcock MD is Attending Physician. sb4 14:37 Triage completed. iw 14:39 Arm band placed on. iw 14:50 Inserted saline lock: 20 gauge in left antecubital area, using aseptic technique. Blood nh2 collected. Flushed with 10 mL NS. 14:50 First set of blood cultures drawn by me. nh2 15:05 Dorothea Tan, RN is Primary Nurse. kc6 15:10 Second set of blood cultures drawn by me. nh2 15:24 Patient has correct armband on for positive identification. Placed in gown. Bed in low kc6 position. Call light in reach. Side rails up X2. Adult w/ patient. Pulse ox on. NIBP on. Door closed. Noise minimized. Lights dimmed. Warm blanket given. Pillow given. Verbal reassurance given. 15:24 EKG done, by ED staff, reviewed by Neeta Mitchell PA-C. Patient maintains SpO2 saturation kc6 greater than 95% on room air. 15:25 Blood Culture Adult (2) Sent. nh2 15:25 CBC with Diff Sent. nh2 15:25 CMP Sent. nh2 15:25 Lactate w/ 2H reflex if indic. Sent. nh2 15:25 Protime (+inr) Sent. nh2 15:25 Ptt, Activated Sent. nh2 15:25 Urinalysis w/ reflexes Sent. nh2 15:36 Chest Single View XRAY In Process Unspecified. EDMS 16:26 Durga Jones PA is Hospitalizing Provider. sb4 18:13 No provider procedures requiring assistance completed. Patient admitted, IV remains in kc6 place. Administered Medications: 15:22 Drug: NS 0.9% IV 1000 ml IV at 1000 ml once; to be given as a bolus over 60 minutes kc6 Route: IV; Rate: 1000 ml; Site: left antecubital; 18:14 Follow up: Response: No adverse reaction; IV Status: Completed infusion; IV Intake: kc6 1000ml 16:39 Drug: AZITHromycin IVPB 500 mg IVPB once over 1 hrs; (mix in 250 mL NS) Route: IVPB; kc6 Infused Over: 1 hrs; Site: left antecubital; 18:14 Follow up: Response: No adverse reaction; IV Status: Completed infusion; IV Intake: kc6 1000ml 16:39 Drug: Rocephin IV 1 grams IV at calculated rate once; Given slow IV push per pharmacy kc6 instructions Route: IV; Rate: calculated rate; Site: left antecubital; 18:14 Follow up: Response: No adverse reaction; IV Status: Completed infusion; IV Intake: [id number] Medication: 18:13 VIS not applicable for this client. kc6 Intake: 18:14 IV: 10ml; Total: 10ml. kc6 18:14 IV: 1000ml; Total: 1010ml. kc6 18:14 IV: 1000ml; Total: 2010ml. kc6 Outcome: 16:26 Decision to Hospitalize by Provider. sb4 18:13 Admitted to Med/surg accompanied by nurse, family with patient, via wheelchair, room kc6 204, with chart, 18:13 Condition: good 18:13 Instructed on the need for admit, 18:14 Patient left the ED. kc6 Signatures: Dispatcher [employer] EDMS Sindy Alvarez, Reg Reg mr Norma Millan, RN Dorothea Mejia RN RN kcNeeta Dixon, PA-C PA-Saima sb4 Matias Kelly, Jerry [facility] Corrections: (The following items were deleted from the chart) 14:37 14:35 Chief complaint: Spouse and/or significant other states: Friday he worked all day iw outside, he had a fever of 102 that night iw
[2024-12-05] MEDS ORDERED: NA CHLORIDE 0.9% 250 ML ONE (16:28)
[2024-12-05] MEDS ORDERED: ACETAMINOPHEN 500 MG TAB PO PRN (16:55)
[2024-12-05] MEDS ORDERED: ALBUTEROL 2.5 MG/3 ML NEB SOL NEB PRN (16:55)
[2024-12-05] MEDS ORDERED: ONDANSETRON 4 MG/2 ML VIAL IV PRN (16:55)
--- NOTE | 2024-12-05 17:08 | P.HP ---
Certification for Inpatient With expected LOS: >2 Midnights Patient will require the following post-hospital care: None Practitioner: I am a practitioner with admitting privileges, knowledge of patient current condition, hospital course, and medical plan of care. Services: Services provided to patient in accordance with Admission requirements found in Title 42 Section 412.3 of the Code of Federal Regulations Patient History Date of Service: 12/05/24 Reason for admission: Pneumonia History of Present Illness: 84-year-old patient present with fever, cough, generalized weakness, shortness of breath for the last 2 to 3 days, he was found to have pneumonia so we were asked to admit him. Denies any other acute complaints. No headache or blackouts. No double vision or blurry vision. No chest pain. No nausea or vomiting. No abdominal pain. No constipation or diarrhea. No blood in the urine or stool. No lower extremity edema. No joint pains. No recent change in the weight. Review of systems: All other 10 point review of systems are negative other than as mentioned above. Allergies and medications: Reviewed, as per med rec EMR. Past medical history: Atrial fibrillation, pulmonary emboli Past surgical history: Cataract surgery, spine surgery, toe surgery, left clavicle surgery Social history: No smoking or alcohol or drugs Family history: No family history of [place]. Mom had history of TIA. Physical examination: Vital signs: Reviewed, as per EMR. General appearance: Alert and comfortable HEENT: Extraocular movements intact, oral mucosa moist. 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8 BUN 27 H Creatinine 1.49 H Glucose 149 H Total Bilirubin 1.2 H AST 20 ALT 23 Alkaline Phosphatase 72 Assessment and Plan - Plan Assessment and plan: 1. Pneumonia: Will treat as community-acquired pneumonia, start ceftriaxone and doxycycline for now, he was given a dose of ceftriaxone and azithromycin in the emergency room, will get a CT scan to get better pictures. 2. History of atrial fibrillation: Continue metoprolol and Coumadin, INR level is 1.69. 3. History of pulmonary emboli status post IVC filter: Currently on warfarin but the INR is subtherapeutic, I will start him on Lovenox for now until INR is better. 4. Acute kidney injury: Gentle IV fluids, monitor closely. 5. Microscopic hematuria: Follow-up with PCP and urology. DVT prophylaxis: Coumadin CODE STATUS: He would like to be DNR Advanced directives: I discussed advanced directives with the patient and his at bedside, his Cyndi is the POA. I Discussed all the above plan with the patient and at bedside, they both understand and agrees with the plan. - Advance Directives Does patient have a Living Will: No Does patient have a Durable POA for Healthcare: No - Code Status/Comfort Care Code Status Assessed: Yes Code Status: Full Code
[2024-12-05] MEDS: METOPROLOL TAR 25 MG TAB PO SCH (18:55)
--- NOTE | 2024-12-05 19:07 | RAD REPORT ---
EXAMINATION: CT Thorax Wo Con CLINICAL INDICATION: Male, 84 years old. eval pnuemonia Y TECHNIQUE: Axial CT scan of the chest without intravenous contrast. Multiplanar reformats were genera jermain and reviewed. One or more of the following dose reduction techniques were used: Automated exposure control, adjustment of the mA and/or kV according patient size, and/or iterative reconstruct ion. Unless otherwise specified, incidental findings do not require dedicated imaging follow-up. COMPARISON: 05/21/2024 FINDINGS: LOWER NECK: Visualized thyroid gland and soft tissues are normal. LUNGS: Crescentic opacity along the peripheral left upper lobe with mildly progressive adjacent groun dglass opacification. More inferiorly, 6 mm calcified granuloma is stable. Volume loss of the left upper lobe again seen. Right peripheral upper more than lower lobe mild groundglass opacities with mi ld tree-in-bud nodularity also appears progressive since prior exam. PLEURA: No pleural effusion. No pneumothorax. . MEDIASTINUM AND LYMPH NODES: No mediastinal mass or fluid collection. Normal size mediastinal, hilar, and axillary lymph nodes. OSSEOUS STRUCTURES AND CHEST WALL: Diffuse osteopenia limits evaluation. Advanced bilateral shoulder joint osteoarthritic changes.. UPPER ABDOMEN: Left interpolar cortex 3.3 cm cyst, stable. IVC filter in place. IMPRESSION: Progressive groundglass opacities in the left upper lobe surrounding known peripheral crescentic atel ectasis, as well as peripheral right upper more than lower lobe groundglass and tree-in-bud opacities, suggesting multifocal infectious/inflammatory process such as pneumonitis.
[2024-12-05] MEDS: NA CHLORIDE 0.9% 1,000 ML IV SCH (21:04)
[2024-12-05] MEDS: ENOXAPARIN 100 MG/ML SYR SQ SCH (21:04)
[2024-12-05] MEDS: DOXYCYCLINE 100 MG CAP PO SCH (21:05)
[2024-12-05] MEDS: ACETAMINOPHEN 500 MG TAB PO PRN (23:58)
[2024-12-06 06:43] LABS: Absolute Basophils 0.1 K/uL (0-0.5); Absolute Eosinophils 0.1 K/uL (0-0.5); Absolute Lymphocytes (CBC) 1.2 K/uL (0.7-4.9); Absolute Monocytes 0.9 K/uL (0.1-1.3); Absolute Neutrophil 5.8 K/uL (1.8-8.0); Basophils % 0.8 % (0-1.3); Eosinophils % 1.5 % (0-4.4); Hematocrit 43.1 % (39.6-49.0); Hemoglobin 14.5 g/dL (13.6-17.9); Lymphocytes % 15.2 % (15.3-44.8); MCH 31.5 pg (27.0-35.0); MCHC 33.5 g/dL (32.0-36.0); MCV 94.1 fL (80-100); MPV 8.7 fL (7.6-11.3); Neutrophils % 71.5 % (41.7-73.7); Platelets 155 thou/uL (152-406); RBC Red Blood Cell Count 4.58 M/uL (4.33-5.43); Red Cell Distribution Width 13.9 % (12.1-15.2)
[2024-12-06 06:44] LABS: PT Prothrombin Time 20.1 SECONDS (10-13.0); Protime INR 1.81
[2024-12-06 06:49] LABS: Albumin 3.1 g/dL (3.4-5.0); Albumin/Globulin Ratio 0.8 (1.1-1.8); Anion Gap 9.1 mEq/L (5.0-15.0); Bilirubin Total 0.9 mg/dL (0.2-1.0); Globulin 4.1 g/dL (2.3-3.5); Potassium 4.1 mEq/L (3.5-5.1); Protein, Total 7.2 g/dL (6.4-8.2)
[2024-12-06] MEDS: WARFARIN SODIUM 7.5 MG TAB PO SCH ×2 (09:00→09:45)
[2024-12-06] MEDS: CEFTRIAXONE 1,000 MG in NA CHLORIDE 0.9% 50 ML IVPB SCH (09:38)
--- NOTE | 2024-12-06 11:30 | EKG ---
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
--- NOTE | 2024-12-06 12:10 | P.PN ---
Subjective Date of Service: 12/06/24 Chief Complaint: Pneumonia Subjective: No chest pain. shortness of breath and cough little better. No nausea or vomiting. No abdominal pain. No obvious bleeding. Looks comfortable in the bed. Objective: General appearance: Alert and comfortable CVS: Normal S1 and S2 Lungs: Clear to auscultation bilaterally Abdomen: Soft, bowel sounds present, no tenderness Extremities: No lower extremity edema Physical Examination - Vital Signs Temperature: 99.4 F Blood Pressure: 141/93 Pulse: 79 Respirations: 18 Pulse Ox (%): 96 - Studies Laboratory Data (last 24 hrs) 12/05/24 12/05/24 12/05/24 15:10 15:10 15:10 WBC 8.50 Hgb 14.4 Hct 42.4 Plt Count 187 PT 18.8 H INR 1.69 APTT 33.6 Sodium 132 L Potassium 3.8 BUN 27 H Creatinine 1.49 H Glucose 149 H Total Bilirubin 1.2 H AST 20 ALT 23 Alkaline Phosphatase 72 Assessment And Plan - Plan Assessment and plan: 1. Pneumonia: treat as community-acquired pneumonia, started on ceftriaxone and doxycycline -Ct chest showed pneumonia, still spiking fevers but WBC normal 2. History of atrial fibrillation: Continue metoprolol and Coumadin, INR level is 1.8, DC lovenox for now. -cardiology to see 3. History of pulmonary emboli status post IVC filter: continue warfarin and monitor INR 4. Acute kidney injury: Continue Gentle IV fluids, monitor closely. 5. Microscopic hematuria: Follow-up with PCP and urology. DVT prophylaxis: Coumadin CODE STATUS: He would like to be DNR I Discussed all the above plan with the patient and RN at bedside. 84-year-old patient admitted with pneumonia, on antibiotics, still spiking fevers, history of A-fib and pulmonary emboli, INR was 1.6 yesterday, started on Lovenox along with Coumadin, INR is 1.8 this morning, he takes Coumadin in the morning, I stop Lovenox for now, monitor INR closely. Probably home in the next 48 hours if clinically improves.
[2024-12-06] MEDS ORDERED: ALBUTEROL 2.5 MG/3 ML NEB SOL NEB PRN (14:35)
--- NOTE | 2024-12-06 16:09 | P.CNS ---
Date of Consult: 12/06/24 Chief Complaint: Pneumonia History of Present Illness: Patient with PMH of DVT/PE, IVC filter, Atrial fibrillation presented to hospital with worsening SOB, productive cough, fever and chills, getting treated for PNA, patient denies chest pain, no palpitations, no syncope. Allergies cortisone Adverse Reaction (Verified 03/28/16 08:54) Nausea/Vomiting No Known Allergies Allergy (Uncoded 10/22/16 11:40) Unknown Home medications list reviewed: Yes Home Medications: Warfarin Sodium 7.5 mg PO DAILY 11/19/11 Meclizine HCl 25 mg PO TIDP PRN #0 tablet 11/20/11 Ibandronate Sodium 150 mg PO SEECOM 12/05/24 Metoprolol Succinate 25 mg PO DAILY 12/05/24 Tamsulosin HCl 0.4 mg PO DAILY 12/05/24 - Social History Smoking Status: Current every day smoker Alcohol use: No CD- Drugs: No Caffeine use: Yes Place of Residence: Home Review of Systems 10-point ROS is otherwise unremarkable Physical Examination Temp Pulse Resp BP Pulse Ox 98.7 F 79 18 141/93 H 96 12/06/24 13:49 12/06/24 12:10 12/06/24 12:10 12/06/24 12:10 12/06/24 12:10 General: Alert, In no apparent distress HEENT: Atraumatic, PERRLA, Mucous membr. moist/pink, EOMI, Sclerae nonicteric Neck: Supple, 2+ carotid pulse no bruit, No LAD, Without JVD or thyroid abnormality Respiratory: Clear to auscultation bilaterally, Normal air movement Cardiovascular: Normal S1 S2, Irregular heart rate/rhythm Gastrointestinal: Normal bowel sounds, No tenderness Musculoskeletal: No tenderness Integumentary: No rashes Neurological: Normal gait, Normal speech, Normal tone, Normal affect Lymphatics: No axilla or inguinal lymphadenopathy - Problems (1) Atrial fibrillation Current Visit: Yes Status: Acute Plan: Chronic in nature, tele shows atrial fibrillation, rate is controlled. Continue Metoprolol 25 mg po BID Continue Coumadin, goal INR is 2-3 Patient usually follow up with cardiology as outpatient No further inpatient testing or intervention needed.
[2024-12-06] MEDS ORDERED: WARFARIN SODIUM 7.5 MG TAB PO SCH (17:00)
[2024-12-07 04:46] LABS: Anion Gap 8.6 mEq/L (5.0-15.0); Potassium 3.6 mEq/L (3.5-5.1)
[2024-12-07 04:51] LABS: Absolute Basophils 0.1 K/uL (0-0.5); Absolute Eosinophils 0.1 K/uL (0-0.5); Absolute Lymphocytes (CBC) 0.9 K/uL (0.7-4.9); Absolute Monocytes 0.5 K/uL (0.1-1.3); Absolute Neutrophil 4.5 K/uL (1.8-8.0); Hematocrit 39.2 % (39.6-49.0); Hemoglobin 13.3 g/dL (13.6-17.9); Lymphocytes % 14.4 % (15.3-44.8); MCH 31.5 pg (27.0-35.0); MCV 92.5 fL (80-100); MPV 8.9 fL (7.6-11.3); Monocytes % 8.7 % (3.3-12.3); Neutrophils % 74.9 % (41.7-73.7); Nucleated Red Blood Cells % 0.1 % (0-0); Platelets 149 thou/uL (152-406); RBC Red Blood Cell Count 4.24 M/uL (4.33-5.43); Red Cell Distribution Width 13.8 % (12.1-15.2)
[2024-12-07 04:57] LABS: Protime INR 2.38
--- NOTE | 2024-12-07 09:17 | P.PN ---
Subjective Date of Service: 12/07/24 Chief Complaint: Pneumonia Subjective: No new changes, No C/O voiced, Tolerating diet, Ambulating, Improving Review of Systems 10-point ROS is otherwise unremarkable Physical Examination - Vital Signs Temperature: 98.0 F Blood Pressure: 122/82 Pulse: 73 Respirations: 16 Pulse Ox (%): 100 - Physical Exam General: Alert, In no apparent distress HEENT: Atraumatic, PERRLA, EOMI Neck: Supple, JVD not distended Respiratory: Clear to auscultation bilaterally, Normal air movement Cardiovascular: Normal S1 S2, Irregular heart rate/rhythm Gastrointestinal: Normal bowel sounds, No tenderness Musculoskeletal: No tenderness Integumentary: No rashes Neurological: Normal speech, Normal tone, Normal affect Lymphatics: No axilla or inguinal lymphadenopathy - Studies Medications List Reviewed: Yes Assessment And Plan - Current Problems (Diagnosis) (1) Atrial fibrillation Current Visit: Yes Status: Acute Plan: Chronic in nature, tele shows atrial fibrillation/flutter, rate is controlled. Continue Metoprolol 25 mg po BID Continue Coumadin, goal INR is 2-3 Patient usually follow up with cardiology as outpatient No further inpatient testing or intervention needed. Cardiology will sign off, please call with any questions.
--- NOTE | 2024-12-07 12:28 | RAD REPORT ---
EXAMINATION: ONE VIEW CHEST XR CLINICAL INDICATION: Male, 84 years old.,hypoxia TECHNIQUE: Frontal chest projection is submitted. Examination is limited by patient positioning and t echnique. COMPARISON: 12/05/2024 FINDINGS: Stable left midlung opacity and background chronic interstitial changes. No pneumothorax or sizable effusion. The heart is normal in size. Mediastinal contours are unremarkable. IMPRESSION: Stable left mid lung opacity, may reflect atelectasis or residual airspace disease.
--- NOTE | 2024-12-07 13:17 | P.PN ---
Subjective Date of Service: 12/07/24 Chief Complaint: Pneumonia Subjective: No new changes No complaints. No acute events overnight Review of Systems Unremarkable General: Weakness Eyes: Pain ENT: Throat Swelling Respiratory: Cough Gastrointestinal: Nausea, Vomiting, Abdominal Pain Musculoskeletal: Atrophy Neurological: Weakness Physical Examination - Vital Signs Temperature: 102.1 F Blood Pressure: 127/83 Pulse: 89 Respirations: 16 Pulse Ox (%): 98 - Studies Medications List Reviewed: Yes Assessment And Plan - Plan Assessment and plan: 1. Pneumonia: treat as community-acquired pneumonia, started on ceftriaxone and doxycycline -Ct chest showed pneumonia, still spiking fevers but WBC normal 2. History of atrial fibrillation: Continue metoprolol and Coumadin - INR currently at therapeutic range 3. History of pulmonary emboli status post IVC filter: continue warfarin and monitor INR 4. Acute kidney injury: Resolved, continue Gentle IV fluids, monitor closely. 5. Microscopic hematuria: Follow-up with PCP and urology. 6. Disposition: Awaiting PT/OT eval DVT prophylaxis: Coumadin CODE STATUS: He would like to be DNR
[2024-12-07] MEDS: DOCUSATE NA/SENNA CONC 1 TAB PO SCH (21:14)
[2024-12-08 07:28] LABS: Absolute Basophils 0.1 K/uL (0-0.5); Absolute Eosinophils 0.2 K/uL (0-0.5); Absolute Monocytes 0.4 K/uL (0.1-1.3); Absolute Neutrophil 4.5 K/uL (1.8-8.0); Basophils % 1.4 % (0-1.3); Eosinophils % 2.9 % (0-4.4); Hematocrit 39.2 % (39.6-49.0); Hemoglobin 13.4 g/dL (13.6-17.9); MCH 31.5 pg (27.0-35.0); MCHC 34.2 g/dL (32.0-36.0); MCV 92.1 fL (80-100); MPV 8.2 fL (7.6-11.3); Neutrophils % 72.7 % (41.7-73.7); Nucleated Red Blood Cells % 0.1 % (0-0); Platelets 174 thou/uL (152-406); RBC Red Blood Cell Count 4.25 M/uL (4.33-5.43); Red Cell Distribution Width 13.9 % (12.1-15.2)
[2024-12-08 07:30] LABS: PT Prothrombin Time 36.1 SECONDS (10-13.0); Protime INR 3.35
[2024-12-08] MEDS: POLYETHYL GLY 3350 17 GM/DOSE PO SCH (09:10)
--- NOTE | 2024-12-08 09:10 | RAD REPORT ---
EXAM: CT CHEST, ABDOMEN AND PELVIS WITH CONTRAST CLINICAL INDICATION: persistent fevers TECHNIQUE: CT chest, abdomen and pelvis was performed, following the administration of contrast, as p er department protocol. Axial, sagittal and coronal reconstructions were obtained. One or more of the following dose reduction techniques were used: Automated exposure control, adjustment of the mA a nd/or kV according to patient size, and/or iterative reconstruction. Unless otherwise specified, incidental findings do not require dedicated imaging follow-up. COMPARISON: 12/05/2024 FINDINGS: LUNGS: Mild airspace opacity right lung base posteriorly. Mild to moderate linear opacity in the ling shamir. Subtle groundglass opacity in the right upper lobe posteriorly. PLEURA: No pleural effusion. No pneumothorax. MEDIASTINUM AND LYMPH NODES: No mediastinal mass or fluid collection. Normal size mediastinal, hilar, and axillary lymph nodes. OSSEOUS STRUCTURES AND CHEST WALL: Intact. LIVER: Small hepatic cysts are present. Nonvisualized gallbladder. PANCREAS: No mass, ductal dilation, or josé manuel-pancreatic fluid. SPLEEN: Normal size. No focal lesion. ADRENALS: Normal; no mass. KIDNEYS: No hydronephrosis is seen. Small calculus right kidney. Multiple cysts are present in both k idneys, largest on the right measuring 8 cm. URINARY BLADDER: Normal contour. GASTROINTESTINAL TRACT: No bowel obstruction, free air, significant free fluid or abscess. Moderate stool throughout the colon APPENDIX: Normal appendix. LYMPH NODES: No lymphadenopathy. MUSCULOSKELETAL: Diffuse osteopenia seen with lumbar degenerative changes noted. OTHER: IVC filter is in place. Prostate gland is mildly enlarged. IMPRESSION: Moderate infiltrate pattern particularly in the right lower lobe as described may represent areas of developing pneumonia. Lingular opacity has a more chronic appearance. Additional findings outlined above.
[2024-12-08 10:00] LABS: Anion Gap 9.8 mEq/L (5.0-15.0); Potassium 3.8 mEq/L (3.5-5.1)
--- NOTE | 2024-12-08 12:22 | P.PN ---
Subjective Date of Service: 12/08/24 Chief Complaint: Pneumonia No complaints. No acute events overnight Review of Systems 10-point ROS is otherwise unremarkable Physical Examination - Vital Signs Temperature: 98.9 F Blood Pressure: 112/80 Pulse: 70 Respirations: 18 Pulse Ox (%): 93 - Physical Exam General: Alert, Oriented x3 HEENT: Atraumatic Neck: Supple Respiratory: Clear to auscultation bilaterally Cardiovascular: No edema, Regular rate/rhythm, Normal S1 S2 Gastrointestinal: Normal bowel sounds Musculoskeletal: No clubbing, No swelling, No erythema - Studies Medications List Reviewed: Yes Assessment And Plan - Plan Assessment and plan: 1. Pneumonia: treat as community-acquired pneumonia - Patient was on Rocephin and doxycycline but still having persistent fever spikes so switched to vancomycin and cefepime -Repeat blood cultures ordered -CT of chest/abdomen/pelvis showed evidence of right sided pneumonia - Infectious disease consult initiated 2. History of atrial fibrillation: Continue metoprolol and Coumadin - INR currently at supra-therapeutic range so discontinued Coumadin 3. History of pulmonary emboli status post IVC filter: continue warfarin and monitor INR 4. Acute kidney injury: Resolved, continue Gentle IV fluids, monitor closely. 5. Microscopic hematuria: Follow-up with PCP and urology. 6. Disposition: Awaiting PT/OT eval DVT prophylaxis: Off Coumadin due to supratherapeutic INR CODE STATUS: He would like to be DNR
[2024-12-08] MEDS ORDERED: HOME MED 1 EA UNK (Meclizine Hcl [Meclizine Hcl] 25 MG Tablet) PO PRN (14:12)
[2024-12-08] MEDS ORDERED: MECLIZINE HCL 12.5 MG TAB PO PRN (14:19)
[2024-12-08] MEDS: VANCOMYCIN 2.5 GM in NA CHLORIDE 0.9% 500 ML IVPB ONE (15:23)
--- NOTE | 2024-12-08 16:14 | CON ---
History Of Present Illness: The patient is an 84-year-old male. I was consulted for recurrent fever s with right lower lobe pneumonia. The patient initially brought into the hospital on December 05, and w as started on doxycycline and Rocephin which has been changed to vancomycin and cefepime as patient w as having recurrent fevers. His initial symptoms are fever, cough, and generalized weakness as per h is family member. The patient was also short of breath for 2-3 days prior to admission and was found to have pneumonia. Denies any headache, nausea, vomiting, chest pain, abdominal pain, constipation, diarrhea, problems with antibiotic. Sitting up on bed with the physical therapist. Past Medical History: Atrial fibrillation, pulmonary embolism, back surgery, cataract surgery, toe s urgery, and left clavicle surgery. Social History: Longstanding tobacco history of 56 years, quit 3 years ago. No alcohol history. Family History: Noncontributory except TIA. Medications: Vancomycin. Cefepime. See MARs for other medications. Allergies: NO KNOWN DRUG ALLERGIES EXCEPT CORTISONE. Review of Systems: A 10-point review was performed. Physical Examination: General: This is an 84-year-old male, sitting in bed, not in any acute cardiopulmonary distress. Vital Signs: Temperature 98.9, pulse 70, respirations 18, blood pressure 112/80. T-max of 100.2 las t night at 0346, and yesterday 102.1. His blood cultures drawn today are pending. Cultures done on 12/05 showed no growth on [address] abdomen and pelvis and chest done earlier today showed the patient has right lower lobe pneumonia and lingular pneumonia. Assessment And Plan: 84-year-old male with longstanding history of tobacco use of 55 years, coming i n with right lower lobe pneumonia and also had history of COVID and flu 1 year ago. The patient cont inued to spike fevers. I agree with vancomycin and cefepime, also required to add Flagyl, total cour se of 2 weeks as patient has been having prolonged fevers, even though no leukocytosis. Continue to monitor signs of infection with WBC and fever trends. Thank you, Dr. Merino, for consult. NF/ONDINA Voice ID: [id number] Report ID: [id number]
[2024-12-08] MEDS: METRONIDAZOLE 500mg IVPB 500 MG/100 ML BAG IV SCH (16:19)
[2024-12-08] MEDS: CEFEPIME 2 GM in NA CHLORIDE 0.9% 100 ML IV SCH (16:20)
[2024-12-08 18:37] VITALS: BMI 33.5
[2024-12-09 05:18] LABS: Absolute Eosinophils 0.2 K/uL (0-0.5); Absolute Lymphocytes (CBC) 0.9 K/uL (0.7-4.9); Absolute Monocytes 0.4 K/uL (0.1-1.3); Absolute Neutrophil 5.2 K/uL (1.8-8.0); Basophils % 0.7 % (0-1.3); Eosinophils % 2.7 % (0-4.4); Hematocrit 37.6 % (39.6-49.0); Hemoglobin 12.8 g/dL (13.6-17.9); Lymphocytes % 12.9 % (15.3-44.8); MCH 31.2 pg (27.0-35.0); MCV 91.9 fL (80-100); MPV 8.4 fL (7.6-11.3); Neutrophils % 77.7 % (41.7-73.7); Nucleated Red Blood Cells % 0.2 % (0-0); Platelets 176 thou/uL (152-406); RBC Red Blood Cell Count 4.09 M/uL (4.33-5.43); Red Cell Distribution Width 13.5 % (12.1-15.2)
[2024-12-09 05:32] LABS: Anion Gap 10.5 mEq/L (5.0-15.0); Potassium 3.5 mEq/L (3.5-5.1)
[2024-12-09] MEDS: TAMSULOSIN 0.4 MG SR CAP PO SCH (08:37)
[2024-12-09] MEDS: METOPROLOL XL 25 MG TAB PO SCH (08:40)
[2024-12-09] MEDS: VANCOMYCIN 1.75 GM in NA CHLORIDE 0.9% 500 ML IVPB SCH (10:11)
[2024-12-09 14:19] VITALS: O2SAT 96
--- NOTE | 2024-12-09 16:06 | P.PN ---
Subjective Date of Service: 12/09/24 Chief Complaint: Pneumonia No complaints. No acute events overnight Physical Examination - Vital Signs Temperature: 98.2 F Blood Pressure: 109/72 Pulse: 62 Respirations: 20 Pulse Ox (%): 96 - Studies Medications List Reviewed: Yes Assessment And Plan - Plan Assessment and plan: 1. Pneumonia: treat as community-acquired pneumonia - Patient was on vancomycin and cefepime but still having persistent fever spikes so initiated meropenem in lieu of cefepime -Repeat blood cultures ordered -CT of chest/abdomen/pelvis showed evidence of right sided pneumonia - Infectious disease consult initiated 2. History of atrial fibrillation: Continue metoprolol and Coumadin - INR currently at supra-therapeutic range so discontinued Coumadin 3. History of pulmonary emboli status post IVC filter: continue warfarin and monitor INR 4. Acute kidney injury: Resolved, continue Gentle IV fluids, monitor closely. 5. Microscopic hematuria: Follow-up with PCP and urology. 6. Disposition: Awaiting PT/OT eval DVT prophylaxis: Off Coumadin due to supratherapeutic INR CODE STATUS: DNR
[2024-12-09] MEDS: Meropenem 500 MG in NA CHLORIDE 0.9% 100 ML IV SCH (16:41)
[2024-12-09] MEDS: IBUPROFEN 400 MG TAB PO ONE (19:44)
--- NOTE | 2024-12-09 23:44 | PN ---
Subjective: The patient is lying in bed. Feels slightly better today. Denies any other problems. No chest pain, abdominal pain, constipation, diarrhea. Objective: Vital Signs: Temperature is T-max of 102, pulse 62, respiration 20, blood pressure 109/7 2. Lungs: Basal crackles. Heart: S1, S2. Regular. Abdomen: Soft, nontender. Bowel sounds present. Extremities: No edema. Laboratory Data: WBC 6.7, hemoglobin 12.8, platelets are 176. BUN of 16, creatinine 0.8. Assessment And Plan: Right lower lobe pneumonia, empirically is being treated with vancomycin and wi ll be switching to meropenem as the patient continued to spike high fevers from cefepime. The patien t with longstanding history of tobacco use. Another possibility would be drug fever, as the patient is improving clinically, but continues to spi ke high fevers. Blood cultures negative. CT abdomen and pelvis shows moderate infiltrate pattern, p articularly in the right lower lobe. Lingular opacity has more chronic appearance. Continue support sebastien care. We will follow the patient as needed. NF/MODL Voice ID: [id number] Report ID: [id number]
[2024-12-10 04:58] LABS: Absolute Basophils 0.1 K/uL (0-0.5); Absolute Eosinophils 0.5 K/uL (0-0.5); Absolute Lymphocytes (CBC) 1.1 K/uL (0.7-4.9); Absolute Monocytes 0.4 K/uL (0.1-1.3); Absolute Neutrophil 6.4 K/uL (1.8-8.0); Eosinophils % 5.8 % (0-4.4); Hematocrit 35.8 % (39.6-49.0); Hemoglobin 12.2 g/dL (13.6-17.9); Lymphocytes % 13.3 % (15.3-44.8); MCHC 34.1 g/dL (32.0-36.0); MCV 93.7 fL (80-100); MPV 8.7 fL (7.6-11.3); Monocytes % 4.7 % (3.3-12.3); Neutrophils % 75.2 % (41.7-73.7); Nucleated Red Blood Cells % 0.1 % (0-0); Platelets 186 thou/uL (152-406); RBC Red Blood Cell Count 3.82 M/uL (4.33-5.43); Red Cell Distribution Width 13.8 % (12.1-15.2)
[2024-12-10 05:07] LABS: PT Prothrombin Time 51.7 SECONDS (10-13.0); Protime INR 4.89
[2024-12-10 05:14] LABS: Anion Gap 10.4 mEq/L (5.0-15.0); Potassium 3.4 mEq/L (3.5-5.1)
[2024-12-10] MEDS ORDERED: WARFARIN SODIUM 7.5 MG TAB PO SCH (09:00)
[2024-12-10] MEDS: POTASSIUM CL SA 10 MEQ TAB PO ONE (10:17)
--- NOTE | 2024-12-10 12:37 | P.PN ---
Subjective Date of Service: 12/10/24 Chief Complaint: Pneumonia No complaints. No acute events overnight Review of Systems 10-point ROS is otherwise unremarkable Physical Examination - Vital Signs Temperature: 97.8 F Blood Pressure: 112/78 Pulse: 78 Respirations: 16 Pulse Ox (%): 93 - Physical Exam General: Alert, Oriented x3 HEENT: Atraumatic, Normocephalic, PERRLA Respiratory: Clear to auscultation bilaterally, Normal air movement Cardiovascular: No edema, Normal pulses, Regular rate/rhythm Gastrointestinal: Normal bowel sounds, Hypoactive, Soft and benign Musculoskeletal: No clubbing, No swelling, No contractures Neurological: Normal gait, Normal speech, Normal strength at 5/5 x4 extr - Studies Medications List Reviewed: Yes Assessment And Plan - Plan Assessment and plan: 1. Pneumonia: treat as community-acquired pneumonia - Patient was on vancomycin and cefepime but still having persistent fever spikes so initiated meropenem in lieu of cefepime -Repeat blood cultures ordered -CT of chest/abdomen/pelvis showed evidence of right sided pneumonia - Infectious disease consult initiated 2. History of atrial fibrillation: Continue metoprolol and Coumadin - INR currently at supra-therapeutic range so discontinued Coumadin 3. History of pulmonary emboli status post IVC filter: INR supratherapeutic at 4.8. Currently off Coumadin 4. Acute kidney injury: Resolved, 5. Microscopic hematuria: Follow-up with PCP and urology. 6. Disposition: Awaiting PT/OT eval DVT prophylaxis: Off Coumadin due to supratherapeutic INR CODE STATUS: DNR
[2024-12-10] MEDS ORDERED: VITAMIN K (ADULT) 10 MG/ML SQ ONE (13:00)
[2024-12-10] MEDS: VITAMIN K (ADULT) 10 MG/ML SQ ONE (13:27)
--- NOTE | 2024-12-10 18:05 | P.PN ---
Date of Service: 12/10/24 Subjective: The patient is lying in bed. Denies any other problems. No chest pain, abdominal pain, constipation, diarrhea. Objective: Temp Pulse Resp BP Pulse Ox 97.3 F 111 H 16 115/68 94 12/10/24 16:29 12/10/24 16:00 12/10/24 16:00 12/10/24 16:00 12/10/24 16:00 Neuro: aox3 Lungs: CTA Heart: S1, S2. Regular. Abdomen: Soft, nontender. Bowel sounds present. Extremities: No edema. culture blood 12/09/23: neg Laboratory Data: WBC 8.5, hemoglobin 12.2, platelets are 186. BUN of 21, creatinine 0.93 Assessment And Plan: Right lower lobe pneumonia treated empirically with vancomycin and meropenem Blood cultures negative. WBC normal CT abdomen and pelvis shows moderate infiltrate pattern, particularly in the right lower lobe. Lingular opacity has more chronic appearance. Continue supportive care. We will follow the patient as needed. case discussed and in agreement with dr casarez
[2024-12-11 06:28] LABS: Absolute Basophils 0.1 K/uL (0-0.5); Absolute Eosinophils 0.3 K/uL (0-0.5); Absolute Lymphocytes (CBC) 1.1 K/uL (0.7-4.9); Absolute Monocytes 0.4 K/uL (0.1-1.3); Absolute Neutrophil 5.9 K/uL (1.8-8.0); Basophils % 0.9 % (0-1.3); Eosinophils % 3.9 % (0-4.4); Hemoglobin 11.7 g/dL (13.6-17.9); Lymphocytes % 14.5 % (15.3-44.8); MCH 31.7 pg (27.0-35.0); MCHC 34.3 g/dL (32.0-36.0); MCV 92.4 fL (80-100); MPV 8.5 fL (7.6-11.3); Monocytes % 5.4 % (3.3-12.3); Neutrophils % 75.3 % (41.7-73.7); Nucleated Red Blood Cells % 0.2 % (0-0); Platelets 236 thou/uL (152-406); RBC Red Blood Cell Count 3.68 M/uL (4.33-5.43); Red Cell Distribution Width 14.1 % (12.1-15.2)
[2024-12-11 06:38] LABS: Anion Gap 9.8 mEq/L (5.0-15.0); Potassium 3.8 mEq/L (3.5-5.1)
[2024-12-11] MEDS: VANCOMYCIN 2 GM in NA CHLORIDE 0.9% 500 ML IVPB SCH (11:00)
[2024-12-11 12:53] VITALS: BP 112/75; TEMP 98.3
[2024-12-11 13:02] LABS: PT Prothrombin Time 37.6 SECONDS (10-13.0); Protime INR 3.5
--- NOTE | 2024-12-11 14:19 | P.DS ---
Admission Date: 12/05/24 Discharge Date: 12/11/24 Reason for Admission: Pneumonia Brief History of Present Illness: 84-year-old patient present with fever, cough, generalized weakness, shortness of breath for the last 2 to 3 days, he was found to have pneumonia so we were asked to admit him. Denies any other acute complaints. Hospital Course: 84-year-old male atrial fibrillation, PE with IVC filter, on Coumadin, admitted for shortness of breath for 2 to 3 days prior to admission. CT of chest on admission showed evidence of right-sided pneumonia. Patient was initiated on empiric antibiotics vancomycin, cefepime and Flagyl with clinical improvement. Leukocytosis resolved. Dyspnea resolved however patient continued to have persistent paroxysmal fevers so antibiotics was changed from vancomycin to meropenem with event resolution of fever. Received a total of 6 days of antibiotic therapy. Of note, during the course of admission, INR trended up to 4.8 so Coumadin was held. At time of discharge, INR was trending down was 3.5 so patient advised to resume Coumadin in 48 hours and follow-up with PCP in 48 hours to recheck INR. Patient and verbalized understanding Vital Signs/Physical Exam: Temp Pulse Resp BP Pulse Ox 98.3 F 95 H 18 112/75 93 12/11/24 12:00 12/11/24 12:00 12/11/24 12:00 12/11/24 12:00 12/11/24 12:00 General: Alert, Oriented x3 HEENT: Atraumatic Neck: Supple Respiratory: Clear to auscultation bilaterally Cardiovascular: No edema Capillary refill: <2 Seconds Gastrointestinal: Normal bowel sounds Musculoskeletal: No clubbing Integumentary: No rashes Laboratory Data at Discharge: WBC 7.80 thou/uL (4.3-10.9) 12/11/24 06:04 Hgb 11.7 g/dL (13.6-17.9) L 12/11/24 06:04 Hct 34.0 % (39.6-49.0) L 12/11/24 06:04 Plt Count 236 thou/uL (152-406) D 12/11/24 06:04 PT 37.6 SECONDS (10-13.0) H 12/11/24 11:48 INR 3.50 12/11/24 11:48 APTT 33.6 SECONDS (27.2-37.4) 12/05/24 15:10 Sodium 136 mEq/L (136-145) 12/11/24 06:04 Potassium 3.8 mEq/L (3.5-5.1) 12/11/24 06:04 BUN 16 mg/dL (7-18) 12/11/24 06:04 Creatinine 0.77 mg/dL (0.70-1.30) 12/11/24 06:04 Glucose 130 mg/dL (74-106) H 12/11/24 06:04 Total Bilirubin 0.9 mg/dL (0.2-1.0) 12/06/24 06:11 AST 21 U/L (15-37) 12/06/24 06:11 ALT 25 U/L (16-61) 12/06/24 06:11 Alkaline Phosphatase 59 U/L (45-117) 12/06/24 06:11 Home Medications: Meclizine HCl 25 mg PO TIDP PRN #0 tablet 11/20/11 Ibandronate Sodium 150 mg PO SEECOM 12/05/24 Metoprolol Succinate 25 mg PO DAILY 12/05/24 Tamsulosin HCl 0.4 mg PO DAILY 12/05/24 Physician Discharge Instructions: 1. Follow up with PCP on 12/13/2024 to check INR 2. Resume Warfarin or Coumadin on 12/13/2024 Followup: Ce Dumas DO, DO [Primary Care Provider] - 1-2 Days (Follow up with PCP on 12/13/2024)
[2024-12-30] MEDS ORDERED: IBANDRONATE SODIUM 150 MG PO SCH (06:00)
== END 2024-12-11 14:25 | disposition home or self-care (01) | DRG 194 ==
LOC: ER 14:20 → ERHOLD 16:55 → 2ND 17:59
PROVIDERS: ADMIT Hospitalist; ATTEND Internal Medicine
DX: J18.9 Pneumonia, unspecified organism (principal); E87.1 Hypo-osmolality and hyponatremia; N17.9 Acute kidney failure, unspecified; I48.92 Unspecified atrial flutter; I48.91 Unspecified atrial fibrillation; R31.29 Other microscopic hematuria; F17.200 Nicotine dependence, unspecified, uncomplicated; Z66 Do not resuscitate; Z11.52 Encounter for screening for COVID-19; Z86.718 Personal history of other venous thrombosis and embolism; Z86.711 Personal history of pulmonary embolism; Z79.01 Long term (current) use of anticoagulants; Z79.899 Other long term (current) drug therapy
CPT/HCPCS: 36415; 71045; 71250; 71260; 74177; 80048; 80053; 80202; 81001; 83605; 85025; 85610; 85730; 87040; 87428; 93005; 96361; 96365; 96366; 96368; 97116; 97161; 97165; 97530; 99285; J0692; J0696; J1650; J3370; J3430; J7030; J7040; J7050; Q9967